=== PATIENT | female | born 1985 | race Hispanic/Latino ===

== ENCOUNTER 2017-11-05 18:42 | Emergency (ER) | payer SELFPAY ==
--- NOTE | 2017-11-05 20:17 | RAD REPORT ---
EXAM DESCRIPTION: CT - Head Brain Wo Cont - 11/05/2017 8:04 pm CLINICAL HISTORY: SYNCOPE Drowsiness COMPARISON: No comparisons TECHNIQUE: All CT scans are performed using dose optimization technique as appropriate and may inclu de automated exposure control or mA/KV adjustment according to patient size. FINDINGS: No intracranial hemorrhage, hydrocephalus or extra-axial fluid collection.No areas of brai n edema or evidence of midline shift. The paranasal sinuses and mastoids are clear. The calvarium is intact. IMPRESSION: No acute intracranial abnormality.
--- NOTE | 2017-11-05 20:18 | RAD REPORT ---
EXAM DESCRIPTION: RAD - Chest Single View - 11/05/2017 8:12 pm CLINICAL HISTORY: presyncope Chest pain. COMPARISON: Chest Single View dated 09/16/2016 FINDINGS: Portable technique limits examination quality. The lungs are grossly clear. The heart is normal in size. No displaced fractures. IMPRESSION: No acute intrathoracic process suspected.
[2017-11-05 20:48] LABS: Absolute Lymphocytes (CBC) 1.3 K/uL (0.7-4.9); Absolute Monocytes 0.4 K/uL (0.1-1.3); Absolute Neutrophil 6.5 K/uL (1.8-8.0); Basophils % 0.6 % (0-1.3); Eosinophils % 1.1 % (0-4.4); Hematocrit 37.6 % (36.0-45.0); Lymphocytes % 15.7 % (15.3-44.8); MCH 30.2 pg (27.0-35.0); MCV 88.9 fL (80-100); MPV 10.2 fL (7.6-11.3); Monocytes % 4.8 % (3.3-12.3); RBC Red Blood Cell Count 4.23 M/uL (3.86-4.86)
[2017-11-05 20:52] LABS: ALT/SGPT 15 U/L (12-78); AST/SGOT 14 U/L (15-37); Albumin 4.1 g/dL (3.4-5.0); Alkaline Phosphatase 69 U/L (45-117); BUN Blood Urea Nitrogen 17 mg/dL (7-18); Bicarbonate 27 mmol/L (21-32); Bilirubin Direct 0.1 mg/dL (0-0.2); Bilirubin Total 0.3 mg/dL (0.2-1.0); Glucose Level 91 mg/dL (74-106); Magnesium 2.5 mg/dL (1.8-2.4); NT PRO-BNP 25 pg/mL (<125); Potassium 3.8 mmol/L (3.5-5.1); Protein, Total 8.1 g/dL (6.4-8.2); Sodium Level 139 mmol/L (136-145); Troponin (Emerg Dept Use Only) < 0.02 ng/mL (0.0-0.045)
[2017-11-05 21:11] LABS: Protime INR 0.99
--- NOTE | 2017-11-05 22:37 | EDPHYS ---
Physician Documentation [facility] Name: Maribell Karimi Age: 32 yrs Sex: Female : 1985 Arrival Date: 11/05/2017 Time: 18:46 Bed 16 Private MD: ED Physician Wyatt Aleman HPI: 11/05 19:50 This 32 yrs old Female presents to ER via Ambulatory with complaints of jmm Headache, Nausea, Blurred Vision. 19:50 The patient complains of pain to the left occipital area, left base of the skull, right jmm occipital area and right base of the skull. Onset: The symptoms/episode began/occurred gradually, 4 hour(s) ago. Associated signs and symptoms: Pertinent positives: blurred vision. Headache History: The patient has had previous headaches and this one is similar to previous episodes. This is a 32 year old female with no chronic medical conditions that presents to the ED with headache, blurred vision and presyncopal symptoms. Patient states while at work she developed a headache and then developed blurred vision while seeing spots in both eyes. patient states having similar headaches in the past but denies feeling weak with previous headaches. . 19:50 Associated signs and symptoms: Pertinent positives: SOB. 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 - Social history:: Smoking status: Patient/guardian denies using tobacco. - Ebola Screening: : No symptoms or risks identified at this time. ROS: 19:50 Constitutional: Negative for fever, chills, and weight loss, Cardiovascular: Negative jm for chest pain, palpitations, and edema. 19:50 Respiratory: Positive for shortness of breath. 19:50 Neuro: Positive for headache, near syncope, visual changes. 19:50 All other systems are negative. Exam: 19:50 Head/Face: atraumatic. Chest/axilla: Normal chest wall appearance and motion. jmm Cardiovascular: Regular rate and rhythm. No edema appreciated Respiratory: Normal respirations, no respiratory distress appreciated Abdomen/GI: Non distended, soft 19:50 Constitutional: The patient appears in no acute distress, alert, awake. 19:50 Abdomen/GI: Palpation: abdomen is soft and non-tender, in all quadrants. 19:50 Back: ROM is normal. 19:50 Musculoskeletal/extremity: ROM: intact in all extremities. 19:50 Skin: Appearance: Color: normal in color. 19:50 Neuro: Orientation: is normal, Mentation: is normal, Memory: is normal, Cerebellar function: normal finger to nose testing, Gait: is steady. 19:50 Psych: Behavior/mood is pleasant, cooperative. Vital Signs: 19:00 BP 113 / 70; Pulse 66; Resp 16 S; Temp 98.0(TE); Pulse Ox 98% on R/A; Weight 52.16 kg aa5 (R); Height 5 ft. 1 in. (154.94 cm) (R); Pain 10/10; 20:20 BP 100 / 70; Pulse 60; Resp 18; Pulse Ox 99% ; ea 21:16 BP 90 / 53; Pulse 60; Resp 18; Pulse Ox 100% on R/A; ea 21:43 BP 100 / 53; Pulse 62; Resp 18; Pulse Ox 98% ; ea 22:35 BP 101 / 60; Pulse 60; Resp 18; Temp 97.8; Pulse Ox 100% ; ea 19:00 Body Mass Index 21.73 (52.16 kg, 154.94 cm) aa5 MDM: 19:50 Patient medically screened. [facility] 21:31 Data reviewed: vital signs, nurses notes. [facility] 22:34 Data reviewed: lab test result(s), EKG, radiologic studies, CT scan, plain films. [facility] Counseling: I had a detailed discussion with the patient and/or guardian regarding: the historical points, exam findings, and any diagnostic results supporting the discharge/admit diagnosis, lab results, radiology results, the need for outpatient follow up. ED course: Symptoms appear most likely due to hypotension. Patient states feeling much better after IVF. I discussed the need to follow up with cardiology for further evaluation. The patient is otherwise given strict return precautions. Patient understood and agree with the plan of care. . 11/05 19:51 Order name: Basic Metabolic Panel; Complete Time: 21:23 [facility] 11/05 19:51 Order name: CBC with Diff; Complete Time: 21:23 [facility] 11/05 19:51 Order name: LFT's; Complete Time: 21:23 [facility] 11/05 19:51 Order name: Magnesium; Complete Time: 21:23 [facility] 11/05 19:51 Order name: NT PRO-BNP; Complete Time: 21:23 [facility] 11/05 19:51 Order name: PT-INR; Complete Time: 21:23 [facility] 11/05 19:51 Order name: Troponin (emerg Dept Use Only); Complete Time: 21:23 [facility] 11/05 19:51 Order name: XRAY Chest (1 view); Complete Time: 20:18 [facility] 11/05 19:51 Order name: EKG; Complete Time: 19:52 [facility] 11/05 19:51 Order name: Cardiac monitoring; Complete Time: 20:47 [facility] 11/05 19:51 Order name: EKG - Nurse/Tech; Complete Time: 20:47 [facility] 11/05 19:51 Order name: CT Head Brain wo Cont; Complete Time: 20:18 [facility] 11/05 20:45 Order name: D-Dimer; Complete Time: 21:23 [facility] 11/05 19:51 Order name: IV Saline Lock; Complete Time: 20:47 [facility] 11/05 19:51 Order name: Labs collected and sent; Complete Time: 20:47 [facility] 11/05 19:51 Order name: O2 Per Protocol; Complete Time: 20:47 [facility] 11/05 19:51 Order name: O2 Sat Monitoring; Complete Time: 20:47 jm Administered Medications: No medications were administered Point of Care Testing: Blood Glucose: 19:00 Blood Glucose: 129 mg/dL; aa5 Ranges: Critical Glucose Levels:Adult <50 mg/dl or >400 mg/dl <40 mg/dl or >180 mg/dl Disposition: 11/06 06:44 Co-signature as Attending Physician, Wyatt Aleman MD I agree with the assessment and bruna plan of care. Disposition: 11/05/17 22:36 Discharged to Home. Impression: near syncope, Headache. - Condition is Stable. - Discharge Instructions: General Headache Without Cause, Near-Syncope. - Medication Reconciliation Form, Thank You Letter, Antibiotic Education, Prescription Opioid Use, Work release form form. - Follow up: Vimal Birmingham MD; When: 2 - 3 days; Reason: Recheck today's complaints, Continuance of care, Re-evaluation by your physician. Signatures: Dispatcher [employer] [facility] Wyatt Aleman MD MD cha Mickail, Joel, PA PA jmm Calderon, Audri, RN RN aa5 Hortencia Roman RN RN ea Corrections: (The following items were deleted from the chart) 11/05 20:45 20:41 D-DIMER+COAG.LAB.BRZ ordered. [facility] 22:49 22:36 11/05/2017 22:36 Discharged to Home. Impression: near syncope; Headache. ea Condition is Stable. Forms are Medication Reconciliation Form, Thank You Letter, Antibiotic Education, Prescription Opioid Use. Follow up: Vimal Birmingham; When: 2 - 3 days; Reason: Recheck today's complaints, Continuance of care, Re-evaluation by your physician. [facility]
--- NOTE | 2017-11-05 22:37 | ER ---
Nurse's Notes [facility] Name: Maribell Karimi Age: 32 yrs Sex: Female : 1985 Arrival Date: 11/05/2017 Time: 18:46 Bed 16 Private MD: Diagnosis: near syncope;Headache Presentation: 11/05 18:58 Presenting complaint: Patient states: "I was at work and all of a sudden I started aa5 seeing black spots all over, dizzy, short of breath, nausea, and like I was going to pass out but I sat down". Pt currently reports blurry vision, headache to back of head, and nausea. Transition of care: patient was not received from another setting of care. Onset of symptoms was November 05, 2017 at 16:30. Risk Assessment: Do you want to hurt yourself or someone else? Patient reports no desire to harm self or others. Initial Sepsis Screen: Does the patient meet any 2 criteria? No. Patient's initial sepsis screen is negative. Does the patient have a suspected source of infection? No. Patient's initial sepsis screen is negative. Care prior to arrival: None. 18:58 Method Of Arrival: Ambulatory aa5 18:58 Acuity: CHUCKIE 3 aa5 Triage Assessment: 20:00 Headache History: The patient has had previous headaches and this one is more severe ea than previous episodes. General: Appears in no apparent distress. Pain: Also complains of no other associated symptoms. Pain: Complains of pain in occipital area and right base of the skull and left base of the skull. Pain: Also complains of blurry vision. 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 - Social history:: Smoking status: Patient/guardian denies using tobacco. - Ebola Screening: : No symptoms or risks identified at this time. Screenin:00 Abuse screen: Denies threats or abuse. Nutritional screening: No deficits noted. ea Tuberculosis screening: No symptoms or risk factors identified. Fall Risk None identified. Assessment: 20:00 General: Appears uncomfortable, Behavior is calm, cooperative, appropriate for age. ea Pain: Complains of pain in occipital area, left occipital area, left base of the skull, right occipital area and right base of the skull Pain currently is 8 out of 10 on a pain scale. Quality of pain is described as aching, Pain began 1 hour ago. Is continuous. Neuro: Level of Consciousness is awake, alert, obeys commands, Oriented to person, place, time, situation, Solar Tech are equal bilaterally Gait is steady, Speech is normal, Facial symmetry appears normal. Cardiovascular: Heart tones S1 S2 present Patient's skin is warm and dry. Respiratory: Airway is patent Respiratory effort is even, unlabored, Respiratory pattern is regular, symmetrical, Breath sounds are clear bilaterally. GI: Bowel sounds present X 4 quads. Abd is soft and non tender X 4 quads. EENT: Parent/caregiver reports the patient having blurred vision that is accompanied by the headache. Derm: Skin is pink, warm \\T\\ dry. 21:16 Reassessment: Patient and/or family updated on plan of care and expected duration. Pain ea level reassessed. Patient is alert, oriented x 3, equal unlabored respirations, skin warm/dry/pink. 21:45 Reassessment: Patient and/or family updated on plan of care and expected duration. Pain ea level reassessed. Patient is alert, oriented x 3, equal unlabored respirations, skin warm/dry/pink. Pt ambulated tolerated well, denies dizziness, weakness and shortness of breath. 22:00 Reassessment: Patient and/or family updated on plan of care and expected duration. Pain ea level reassessed. Patient is alert, oriented x 3, equal unlabored respirations, skin warm/dry/pink. 22:46 Reassessment: Patient and/or family updated on plan of care and expected duration. Pain ea level reassessed. Patient is alert, oriented x 3, equal unlabored respirations, skin warm/dry/pink. Discharge instructions given to patient, verbalized the understanding of instruciton. Patient states feeling better. Patient states symptoms have improved. Vital Signs: 19:00 BP 113 / 70; Pulse 66; Resp 16 S; Temp 98.0(TE); Pulse Ox 98% on R/A; Weight 52.16 kg aa5 (R); Height 5 ft. 1 in. (154.94 cm) (R); Pain 10/10; 20:20 BP 100 / 70; Pulse 60; Resp 18; Pulse Ox 99% ; ea 21:16 BP 90 / 53; Pulse 60; Resp 18; Pulse Ox 100% on R/A; ea 21:43 BP 100 / 53; Pulse 62; Resp 18; Pulse Ox 98% ; ea 22:35 BP 101 / 60; Pulse 60; Resp 18; Temp 97.8; Pulse Ox 100% ; ea 19:00 Body Mass Index 21.73 (52.16 kg, 154.94 cm) aa5 ED Course: 18:46 Patient arrived in ED. mr 18:59 Triage completed. aa5 18:59 Arm band placed on. aa5 19:15 Valente Mcqueen PA is PHCP. [facility] 19:15 Wyatt Aleman MD is Attending Physician. [facility] 20:00 Hortencia Roman, WENDY is Primary Nurse. ea 20:00 Patient has correct armband on for positive identification. Bed in low position. Call ea light in reach. Side rails up X 1. 20:[address] via wheelchair. md 20:02 CT completed. Patient tolerated procedure well. Patient moved back from CT. md 20:04 CT Head Brain wo Cont In Process Unspecified. EDMS 20:12 XRAY Chest (1 view) In Process Unspecified. EDMS 20:15 Inserted saline lock: 20 gauge in left antecubital area, using aseptic technique. Blood ea collected. 22:36 Vimal Birmingham MD is Referral Physician. [facility] 22:46 No provider procedures requiring assistance completed. IV discontinued, intact, ea bleeding controlled, No redness/swelling at site. Pressure dressing applied. Administered Medications: No medications were administered Point of Care Testing: Blood Glucose: 19:00 Blood Glucose: 129 mg/dL; aa5 Ranges: Outcome: 22:36 Discharge ordered by . [facility] 22:47 Discharged to home ambulatory. ea 22:47 Condition: improved 22:47 Discharge instructions given to patient, Instructed on discharge instructions, follow up and referral plans. Demonstrated understanding of instructions, follow-up care. 22:49 Patient left the ED. ea Signatures: Dispatcher [employer] EDNV Valente Mcqueen PA PA [facility] Andreina Galo Becky Nolen, RN RN aa5 Bong, Joshua nj Roman, Hortencia, RN RN ea
[2017-11-06 00:29] VITALS: BP 101/60; TEMP 97.8; O2SAT 100
--- NOTE | 2017-11-08 06:53 | EKG ---
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
== END 2017-11-05 22:49 | disposition home or self-care (01) ==
LOC: ER 18:42
DX: R55 Syncope and collapse (principal)
CPT/HCPCS: 36415; 70450; 71045; 80048; 80076; 82962; 83735; 83880; 84484; 85025; 85379; 85610; 93005; 99284

== ENCOUNTER 2019-03-10 18:44 | Emergency (ER) | payer SELFPAY ==
[2019-03-10] MEDS ORDERED: MORPHINE 4 MG/ML SYR ONE (19:09)
[2019-03-10] MEDS ORDERED: ONDANSETRON 4 MG/2 ML VIAL ONE (19:09)
[2019-03-10 19:14] LABS: Basophils % 0.5 % (0-1.3); Hematocrit 37.9 % (36.0-45.0); Lymphocytes % 8.6 % (15.3-44.8); MPV 10.2 fL (7.6-11.3); RBC Red Blood Cell Count 4.23 M/uL (3.86-4.86)
[2019-03-10 19:25] LABS: Albumin 4.1 g/dL (3.4-5.0); Bilirubin Direct 0.2 mg/dL (0-0.2); Bilirubin Total 0.7 mg/dL (0.2-1.0); Potassium 3.4 mmol/L (3.5-5.1); Protein, Total 7.8 g/dL (6.4-8.2)
[2019-03-10 19:36] LABS: Urine Blood 3+ (NEG); Urine Glucose NEGATIVE (NEG); Urine Protein 1+ (NEG); Urine Specific Gravity >1.030 (1.005-1.030)
[2019-03-10 19:52] LABS: Blood Morphology Comment NOT SEEN (NOT SEEN); Platelet Estimate ADEQ; Urine White Blood Cell Casts OK
--- NOTE | 2019-03-10 20:16 | RAD REPORT ---
EXAM DESCRIPTION: CT - Abdomen Pelvis W Contrast - 03/10/2019 7:58 pm CLINICAL HISTORY: Abdominal pain COMPARISON: 2017 TECHNIQUE: Computed axial tomography of the abdomen pelvis was obtained. 100 cc Isovue-300 was admin istered intravenously. Oral contrast was not requested which limits evaluation of bowel. All CT scans are performed using dose optimization technique as appropriate and may include automated exposure control or mA/KV adjustment according to patient size. FINDINGS: The liver, spleen, pancreas, adrenal and kidneys appear unremarkable. There is no evidence of diverticulitis. Normal appendix Mild thickening of the wall of the transverse colon IMPRESSION: Mild thickening of the wall of the transverse colon may indicate a mild colitis
[2019-03-10] MEDS ORDERED: METRONIDAZOLE 500mg IVPB 500 MG/100 ML BAG IV ONE (20:45)
[2019-03-10] MEDS ORDERED: CIPROFLOXACIN HCL 500 MG TAB ONE (20:45)
--- NOTE | 2019-03-10 20:59 | EDPHYS ---
Physician Documentation [facility] Name: Maribell Karimi Age: 33 yrs Sex: Female : 1985 Arrival Date: 03/10/2019 Time: 18:45 Bed 19 Private MD: ED Physician Trevin Araujo HPI: 03/10 18:51 This 33 yrs old Female presents to ER via EMS with complaints of Abdominal pm1 Pain. 18:51 The patient presents with abdominal pain right lower quadrant. Onset: The pm1 symptoms/episode began/occurred 30 minutes prior to arrival. The symptoms do not radiate. 18:51 Associated signs and symptoms: Pertinent positives: nausea, vomiting, Vaginal bleeding pm1 on her cycle, Pertinent negatives: chest pain, shortness of breath. The symptoms are described as sharp. Modifying factors: The symptoms are alleviated by nothing, the symptoms are aggravated by nothing. Severity of pain: in the emergency department the pain is actually worse. The patient has not experienced similar symptoms in the past. It is unknown whether or not the patient has recently seen a physician. 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 - Coronavirus screen:: The patient has NOT traveled to [place], [place], or [place] in the past 14 days. - Social history:: Smoking status: . - Ebola Screening: : Patient denies travel to an Ebola-affected area in the 21 days before illness onset. ROS: 18:51 Constitutional: Negative for fever, chills, and weight loss, Neck: Negative for injury, pm1 pain, and swelling, Cardiovascular: Negative for chest pain, palpitations, and edema, Respiratory: Negative for shortness of breath, cough, wheezing, and pleuritic chest pain. 18:51 Back: Negative for injury and pain. 18:51 MS/Extremity: Negative for injury and deformity, Skin: Negative for injury, rash, and discoloration, Neuro: Negative for headache, weakness, numbness, tingling, and seizure. 18:51 Abdomen/GI: Positive for abdominal pain, nausea and vomiting, of the right lower quadrant, Negative for diarrhea, constipation. 18:51 : Positive for vaginal bleeding, Negative for urinary symptoms. Exam: 18:51 Constitutional: This is a well developed, well nourished patient who is awake, alert, pm1 and in no acute distress. Head/Face: Normocephalic, atraumatic. Neck: Trachea midline, no thyromegaly or masses palpated, and no cervical lymphadenopathy. Supple, full range of motion without nuchal rigidity, or vertebral point tenderness. No Meningismus. Chest/axilla: Normal chest wall appearance and motion. Nontender with no deformity. No lesions are appreciated. Cardiovascular: Regular rate and rhythm with a normal S1 and S2. No gallops, murmurs, or rubs. Normal PMI, no JVD. No pulse deficits. Respiratory: Lungs have equal breath sounds bilaterally, clear to auscultation and percussion. No rales, rhonchi or wheezes noted. No increased work of breathing, no retractions or nasal flaring. 18:51 Back: No spinal tenderness. No costovertebral tenderness. Full range of motion. Skin: Warm, dry with normal turgor. Normal color with no rashes, no lesions, and no evidence of cellulitis. MS/ Extremity: Pulses equal, no cyanosis. Neurovascular intact. Full, normal range of motion. 18:51 Abdomen/GI: Inspection: abdomen appears normal, Bowel sounds: normal, Palpation: soft, in all quadrants, mild abdominal tenderness, in the right lower quadrant and left lower quadrant, mass, is not appreciated, rebound tenderness, is not appreciated. 18:51 Neuro: Orientation: is normal, Motor: is normal, moves all fours. Vital Signs: 18:49 BP 106 / 56; Pulse 65; Resp 17; Temp 98.1(O); Pulse Ox 95% on R/A; Weight 54.43 kg (R); tw2 Height 5 ft. 1 in. (154.94 cm); Pain 9/10; 19:30 BP 116 / 69; Pulse 62; Resp 16; Temp 98; Pulse Ox 99% ; Pain 10/10; rr5 20:30 BP 119 / 78; Pulse 66; Resp 19; Pulse Ox 98% on R/A; Pain 0/10; rr5 21:27 BP 110 / 75; Pulse 64; Resp 16; Temp 98.2; Pulse Ox 99% on R/A; rr5 18:49 Body Mass Index 22.67 (54.43 kg, 154.94 cm) tw2 18:49 "when the pain comes its a 9, but its ok right now" tw2 MDM: 18:51 Patient medically screened. pm1 20:58 Data reviewed: vital signs. Data interpreted: Pulse oximetry: on room air is 99 %. pm1 Interpretation: normal. 20:58 Counseling: I had a detailed discussion with the patient and/or guardian regarding: the pm1 historical points, exam findings, and any diagnostic results supporting the discharge/admit diagnosis, lab results, radiology results, the need for outpatient follow up, to return to the emergency department if symptoms worsen or persist or if there are any questions or concerns that arise at home. 03/10 18:49 Order name: Basic Metabolic Panel; Complete Time: 19:30 pm1 03/10 18:49 Order name: CBC with Diff; Complete Time: 20:26 pm 03/10 18:49 Order name: Creatinine for Radiology; Complete Time: 19:30 pm1 03/10 18:49 Order name: Hepatic Function; Complete Time: 19:30 pm1 03/10 18:49 Order name: Lipase; Complete Time: 19:30 pm1 03/10 19:34 Order name: Urine Dipstick--Ancillary (enter results) [facility] 03/10 18:49 Order name: IV Saline Lock; Complete Time: 19:00 pm03/10 19:34 Order name: Urine --Ancillary (enter results) [facility] 03/10 19:37 Order name: CT Abd/Pelvis - IV Contrast Only; Complete Time: 20:26 pm 03/10 19:52 Order name: CBC Smear Scan; Complete Time: 20:26 EDMN 03/10 18:49 Order name: Labs collected and sent; Complete Time: 19:05 pm1 03/10 18:49 Order name: Urine Dipstick-Ancillary (obtain specimen); Complete Time: 19:27 pm1 03/10 18:49 Order name: Urine Test (obtain specimen); Complete Time: 19:27 pm1 Administered Medications: 19:12 Drug: Zofran 4 mg Route: IVP; Site: right antecubital; rr5 20:15 Follow up: Response: No adverse reaction; Marked relief of symptoms rr5 19:14 Drug: morphine 4 mg {Note: rass 0.} Route: IVP; Site: right antecubital; rr5 20:15 Follow up: Response: No adverse reaction; Marked relief of symptoms; RASS: Alert and rr5 Calm (0) 20:49 Drug: Cipro 500 mg Route: PO; rr5 21:30 Follow up: Response: No adverse reaction rr5 20:49 Drug: Flagyl 500 mg Volume: 100 ml; Route: IVPB; Rate: 200 ml/hr; Infused Over: 30 rr5 mins; Site: right antecubital; 21:15 Follow up: Response: No adverse reaction; IV Status: Completed infusion; IV Intake: rr5 100ml Disposition: 03/10/19 20:59 Discharged to Home. Impression: Colitis. - Condition is Stable. - Discharge Instructions: Colitis. - Prescriptions for Flagyl 500 mg Oral Tablet - take 1 tablet by ORAL route every 8 hours for 10 days; 30 tablet. Cipro 500 mg Oral Tablet - take 1 tablet by ORAL route every 12 hours for 10 days; 20 tablet. Bentyl 20 mg Oral Tablet - take 1 tablet by ORAL route every 6 hours As needed; 20 tablet. Tylenol- Codeine #3 300-30 mg Oral Tablet - take 2 tablets by ORAL route every 6 hours As needed; 20 tablet. Zofran 4 mg Oral Tablet - take 1 tablet by ORAL route every 8 hours As needed; 20 tablet. - Medication Reconciliation Form, Thank You Letter, Antibiotic Education, Prescription Opioid Use form. - Follow up: Emergency Department; When: As needed; Reason: Worsening of condition. Follow up: Private Physician; When: 2 - 3 days; Reason: Recheck today's complaints, Continuance of care, Re-evaluation by your physician. - Problem is new. - Symptoms have improved. Addendum: 03/14/2019 07:49 Co-signature as Attending Physician, Trevin Araujo MD. r n Signatures: Dispatcher [employer] EDTrevin Feliciano MD MD rn Marinas, Patrick, PIPELINES SUPERINTENDENT PIPELINES SUPERINTENDENT pm1 Bhavna Ortiz RN RN tw2 Charles Montano RN RN rr5 Corrections: (The following items were deleted from the chart) 03/10 21:30 20:59 03/10/2019 20:59 Discharged to Home. Impression: Colitis. Condition is Stable. rr5 Forms are Medication Reconciliation Form, Thank You Letter, Antibiotic Education, Prescription Opioid Use. Follow up: Emergency Department; When: As needed; Reason: Worsening of condition. Follow up: Private Physician; When: 2 - 3 days; Reason: Recheck today's complaints, Continuance of care, Re-evaluation by your physician. Problem is new. Symptoms have improved. pm1
--- NOTE | 2019-03-10 20:59 | ER ---
Nurse's Notes [facility] Name: Maribell Karimi Age: 33 yrs Sex: Female : 1985 Arrival Date: 03/10/2019 Time: 18:45 Bed 19 Private MD: Diagnosis: Colitis Presentation: 03/10 18:46 Presenting complaint: EMS states: pt started having severe abdominal pain about 30 tw2 minutes ago, pt reports vomiting, pt is on period and states she is having a heavy flow, has had a tuba ligation, vs stable. Transition of care: patient was not received from another setting of care. Onset of symptoms was March 10, 2019. Risk Assessment: Do you want to hurt yourself or someone else? Patient reports no desire to harm self or others. Initial Sepsis Screen: Does the patient meet any 2 criteria? No. Patient's initial sepsis screen is negative. Does the patient have a suspected source of infection? No. Patient's initial sepsis screen is negative. Care prior to arrival: None. 18:46 Method Of Arrival: EMS: [facility] tw2 18:46 Acuity: CHUCKIE 3 tw2 Triage Assessment: 18:48 General: Appears in no apparent distress. Behavior is calm, cooperative, appropriate tw2 for age. Pain: Complains of pain in abdomen. GI: Reports lower abdominal pain, upper abdominal pain, nausea, vomiting. 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 - Coronavirus screen:: The patient has NOT traveled to [place], [place], or [place] in the past 14 days. - Social history:: Smoking status: . - Ebola Screening: : Patient denies travel to an Ebola-affected area in the 21 days before illness onset. Screenin:51 Abuse screen: Denies threats or abuse. Nutritional screening: No deficits noted. tw2 Tuberculosis screening: No symptoms or risk factors identified. Fall Risk None identified. Assessment: 19:00 General: Appears in no apparent distress. uncomfortable, ill, Behavior is calm, rr5 cooperative, appropriate for age. 19:00 Pain: Complains of pain in abdomen Pain does not radiate. Pain currently is 10 out of rr5 10 on a pain scale. Quality of pain is described as aching, Pain began 1 hour ago. Is intermittent. Neuro: Level of Consciousness is awake, alert, obeys commands, Oriented to person, place, time, situation, Appropriate for age. Cardiovascular: Capillary refill < 3 seconds Patient's skin is warm and dry. Respiratory: Airway is patent Respiratory effort is even, unlabored, Respiratory pattern is regular, symmetrical. GI: Abdomen is flat, Bowel sounds present X 4 quads. Guarding noted Reports lower abdominal pain, upper abdominal pain, nausea, vomiting. : Reports vaginal bleeding that is heavy flow. EENT: No signs and/or symptoms were reported regarding the EENT system. Derm: No signs and/or symptoms reported regarding the dermatologic system. Musculoskeletal: Circulation, motion, and sensation intact. Capillary refill < 3 seconds. 20:00 Reassessment: Patient appears in no apparent distress at this time. Patient is alert, rr5 oriented x 3, equal unlabored respirations, skin warm/dry/pink. Patient denies pain at this time. Patient states feeling better. Patient states symptoms have improved. 21:29 Reassessment: Patient appears in no apparent distress at this time. Patient is alert, rr5 oriented x 3, equal unlabored respirations, skin warm/dry/pink. discharge instruction given and explained without complaints made. Patient states feeling better. Patient states symptoms have improved. Vital Signs: 18:49 BP 106 / 56; Pulse 65; Resp 17; Temp 98.1(O); Pulse Ox 95% on R/A; Weight 54.43 kg (R); tw2 Height 5 ft. 1 in. (154.94 cm); Pain 9/10; 19:30 BP 116 / 69; Pulse 62; Resp 16; Temp 98; Pulse Ox 99% ; Pain 10/10; rr5 20:30 BP 119 / 78; Pulse 66; Resp 19; Pulse Ox 98% on R/A; Pain 0/10; rr5 21:27 BP 110 / 75; Pulse 64; Resp 16; Temp 98.2; Pulse Ox 99% on R/A; rr5 18:49 Body Mass Index 22.67 (54.43 kg, 154.94 cm) tw2 18:49 "when the pain comes its a 9, but its ok right now" tw2 ED Course: 18:45 Patient arrived in ED. tw2 18:46 Bed in low position. Call light in reach. Side rails up X2. Pulse ox on. NIBP on. tw2 18:48 Triage completed. tw2 18:49 Fam Munoz, BARTOLO is PHCP. pm1 18:49 Trevin Araujo MD is Attending Physician. pm1 18:51 Arm band placed on. tw2 19:00 Inserted saline lock: 20 gauge in right antecubital area, using aseptic technique. rr5 ,using aseptic technique. received from AM shift Blood collected. 19:02 Charles Montano, RN is Primary Nurse. rr5 19:59 CT Abd/Pelvis - IV Contrast Only In Process Unspecified. EDMS 21:28 No provider procedures requiring assistance completed. IV discontinued, intact, rr5 bleeding controlled, No redness/swelling at site. Pressure dressing applied. Administered Medications: 19:12 Drug: Zofran 4 mg Route: IVP; Site: right antecubital; rr5 20:15 Follow up: Response: No adverse reaction; Marked relief of symptoms rr5 19:14 Drug: morphine 4 mg {Note: rass 0.} Route: IVP; Site: right antecubital; rr5 20:15 Follow up: Response: No adverse reaction; Marked relief of symptoms; RASS: Alert and rr5 Calm (0) 20:49 Drug: Cipro 500 mg Route: PO; rr5 21:30 Follow up: Response: No adverse reaction rr5 20:49 Drug: Flagyl 500 mg Volume: 100 ml; Route: IVPB; Rate: 200 ml/hr; Infused Over: 30 rr5 mins; Site: right antecubital; 21:15 Follow up: Response: No adverse reaction; IV Status: Completed infusion; IV Intake: rr5 100ml Intake: 21:15 IV: 100ml; Total: 100ml. rr5 Outcome: 20:59 Discharge ordered by . pm1 21:28 Discharged to home ambulatory. rr5 21:28 Condition: stable 21:28 Discharge instructions given to patient, Instructed on discharge instructions, follow up and referral plans. medication usage, Demonstrated understanding of instructions, follow-up care, medications, Prescriptions given X x5 21:30 Patient left the ED. rr5 Signatures: Dispatcher [employer] EDMS Fam Munoz, BARTOLO MAGAZINE JOURNALIST pm1 Bhavna Ortiz RN RN tw2 Charles Montano RN RN rr5 Corrections: (The following items were deleted from the chart) 19:06 18:49 Pulse 65bpm; Resp 17bpm; Pulse Ox 95% RA; 54.43 kg Reported; Height 5 ft. 1 in.; tw2 BMI: 22.6; Pain 9; "when the pain comes its a 9, but its ok right now"; tw2
[2019-03-10 21:40] VITALS: BP 110/75; TEMP 98.2; O2SAT 99
== END 2019-03-10 21:30 | disposition home or self-care (01) ==
LOC: ER 18:44
DX: K52.9 Noninfective gastroenteritis and colitis, unspecified (principal); I10 Essential (primary) hypertension
CPT/HCPCS: 36415; 74177; 80048; 80076; 81003; 81025; 83690; 85025; 96365; 96375; 99284; J2405; Q9967

== ENCOUNTER 2020-01-10 11:15 | Emergency (ER) | payer SELFPAY ==
[2020-01-10] MEDS ORDERED: NA CHLORIDE 0.9% 500 ML ONE (12:14)
[2020-01-10] MEDS ORDERED: DIPHENHYDRAMINE 50 MG/ML VIAL ONE (12:14)
[2020-01-10] MEDS ORDERED: METOCLOPRAMIDE 10 MG/2mL INJ ONE (12:14)
--- NOTE | 2020-01-10 12:39 | RAD REPORT ---
EXAM DESCRIPTION: CT - Head Brain Wo Cont - 01/10/2020 12:31 pm CLINICAL HISTORY: HEADACHE, vomiting COMPARISON: Head Brain Wo Cont dated 11/05/2017 TECHNIQUE: Axial 5 mm thick images of the head were obtained without IV contrast. All CT scans are performed using dose optimization technique as appropriate and may include automated exposure control or mA/KV adjustment according to patient size. FINDINGS: No intracranial hemorrhage, mass, edema or shift of mid-line structures. No acute infarcti on changes seen. No abnormal extra-axial fluid collections. Ventricles are normal. Mastoid air cells and visualized portions of the paranasal sinuses are clear. No acute bony findings. No change from comparison. IMPRESSION: Negative non-contrast CT head examination.
[2020-01-10] MEDS ORDERED: dexAMETHasone 10 MG/ML VIAL ONE (14:03)
--- NOTE | 2020-01-10 15:22 | EDPHYS ---
Physician Documentation [facility] Name: Maribell Karimi Age: 34 yrs Sex: Female : 1985 Arrival Date: 01/10/2020 Time: 11:28 Bed 13 Private MD: ED Physician Rony Navas HPI: 01/09 11:47 This 34 yrs old Female presents to ER via EMS with complaints of Headache. jmm 11:47 Onset: The symptoms/episode began/occurred gradually. Associated signs and symptoms: jmm Pertinent positives: Photophobia vomiting, Pertinent negatives: fever, neck stiffness. This is a 34 year old female with no chronic medical conditions that presents to the ED with complaints of acute onset headache beginning today around 0900 am. Headache is worse than previous. 1 episode of vomiting. Patient states having a history of migraine headaches. . 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 - Social history:: Smoking status: Patient denies any tobacco usage or history of. ROS: 11:47 Constitutional: Negative for fever, chills, and weight loss, Cardiovascular: Negative jmm for chest pain, palpitations, and edema, Respiratory: Negative for shortness of breath, cough, wheezing, and pleuritic chest pain. 11:47 Neuro: Positive for headache. 11:47 All other systems are negative. Exam: 11:47 Constitutional: This is a well developed, well nourished patient who is awake, alert, jmm and in no acute distress. Head/Face: atraumatic. Eyes: EOMI, no conjunctival erythema appreciated ENT: Moist Mucus Membranes Neck: Trachea midline, Supple Chest/axilla: Normal chest wall appearance and motion. Cardiovascular: Regular rate and rhythm. No edema appreciated Respiratory: Normal respirations, no respiratory distress appreciated Abdomen/GI: Non distended, soft Back: Normal ROM Skin: General appearance color normal MS/ Extremity: Moves all extremities, no obvious deformities appreciated, no edema noted to the lower extremities Neuro: Awake and alert, normal gait Psych: Behavior is normal, Mood is normal, Patient is cooperative and pleasant Vital Signs: 11:29 BP 105 / 60; Pulse 63; Resp 19 S; Temp 97.7(O); Pulse Ox 100% on R/A; Weight 58.97 kg ca1 (R); Height 5 ft. 1 in. (154.94 cm) (R); Pain 10/10; 13:05 BP 98 / 58; Pulse 79; Resp 17 S; Pulse Ox 100% ; jd3 15:51 BP 100 / 60; Pulse 80; Resp 16; Pulse Ox 100% on R/A; zb 11:29 Body Mass Index 24.56 (58.97 kg, 154.94 cm) ca1 MDM: 11:47 Patient medically screened. [facility] 15:17 Data reviewed: vital signs, nurses notes. Counseling: I had a detailed discussion with [facility] the patient and/or guardian regarding: the historical points, exam findings, and any diagnostic results supporting the discharge/admit diagnosis, radiology results, the need for outpatient follow up, to return to the emergency department if symptoms worsen or persist or if there are any questions or concerns that arise at home. ED course: Pain relieved in the ED. CT negative. I do not suspect SAH or meningitis. Patient is advised to follow up with neuro for further evaluation. Patient is otherwise given strict return precautions. Patient understood and agrees with the plan of care. . 01/09 11:48 Order name: CT Head Brain wo Cont; Complete Time: 12:50 [facility] 01/09 11:48 Order name: Urine Test (obtain specimen); Complete Time: 13:30 [facility] 01/09 11:48 Order name: Saline Lock; Complete Time: 12:22 [facility] Administered Medications: 12:17 Drug: Reglan 20 mg Route: IVP; Site: right antecubital; zb 13:10 Follow up: Response: No adverse reaction zb 12:18 Drug: diphenhydrAMINE 25 mg Route: IVP; Site: right antecubital; zb 13:00 Follow up: Response: No adverse reaction zb 12:18 Drug: NS 0.9% 500 ml Route: IV; Rate: bolus; Site: right antecubital; zb 13:10 Follow up: Response: No adverse reaction; IV Status: Completed infusion; IV Intake: zb 500ml 13:50 Drug: Decadron - Dexamethasone 10 mg Route: IVP; Site: right antecubital; zb 15:50 Follow up: Response: No adverse reaction; Marked relief of symptoms zb Disposition: 16:09 Co-signature as Attending Physician, Rony Navas MD I agree with the assessment and kdr plan of care. Disposition: 01/10/20 15:21 Discharged to Home. Impression: Headache. - Condition is Stable. - Discharge Instructions: General Headache Without Cause. - Medication Reconciliation Form, Thank You Letter, Antibiotic Education, Prescription Opioid Use, Work release form form. - Follow up: Triston Prasad MD; When: 2 - 3 days; Reason: Recheck today's complaints, Continuance of care, Re-evaluation by your physician. Signatures: Dispatcher [employer] EDMS Rony Navas MD MD kdr Mickail, Joel, PA PA jmm Acob, Cheryl, RN RN ca1 Brown, Zipporah, RN RN zb Corrections: (The following items were deleted from the chart) 15:53 15:21 01/10/2020 15:21 Discharged to Home. Impression: Headache. Condition is Stable. zb Forms are Medication Reconciliation Form, Thank You Letter, Antibiotic Education, Prescription Opioid Use. Follow up: Triston Prasad; When: 2 - 3 days; Reason: Recheck today's complaints, Continuance of care, Re-evaluation by your physician. oralia
--- NOTE | 2020-01-10 15:22 | ER ---
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 Had routine Covid-19 testing done, Last test was a week ago. VS WNL. Zofran 4mg given IV, Toradol 30 mg IV given. IV G18 RAC started. Coronavirus screen: Client denies travel out of the [place] in the last 14 days. headache, vomiting. Client presents with at least one sign or symptom that may indicate coronavirus-19. Standard/surgical mask placed on the client. Provider contacted for isolation considerations. Ebola Screen: Patient negative for fever greater than or equal to 101.5 degrees Fahrenheit, and additional compatible Ebola Virus Disease symptoms Patient denies exposure to infectious person. Patient denies travel to an Ebola-affected area in the 21 days before illness onset. No symptoms or risks identified at this time. Initial Sepsis Screen: Does the patient meet any 2 criteria? No. Patient's initial sepsis screen is negative. Does the patient have a suspected source of infection? No. Patient's initial sepsis screen is negative. Risk Assessment: Do you want to hurt yourself or someone else? Patient reports no desire to harm self or others. Onset of symptoms was January 10, 2020. 11:29 Method Of Arrival: EMS: [facility] ca1 11:29 Acuity: CHUCKIE 3 ca1 Triage Assessment: 11:32 Headache History: Denies prior headaches. General: Appears in no apparent distress. ca1 uncomfortable, Behavior is cooperative, appropriate for age, anxious. Pain: Complains of pain in face and scalp Pain does not radiate. Pain currently is 10 out of 10 on a pain scale. Pain began 30 min ago. Also complains of nausea, shortness of breath, vomiting. EENT: No signs and/or symptoms were reported regarding the EENT system. Neuro: Level of Consciousness is awake, alert, obeys commands, Oriented to person, place, time, situation, Manager Dairy are equal bilaterally Moves all extremities. Speech is normal, Facial symmetry appears normal, Pupils are PERRLA, Intact. Cardiovascular: Heart tones S1 S2 present Capillary refill < 3 seconds Patient's skin is warm and dry. Respiratory: Airway is patent Respiratory effort is even, unlabored, Respiratory pattern is regular, symmetrical, Breath sounds are clear bilaterally. GI: Abdomen is flat, non-distended, Bowel sounds present X 4 quads. Abd is soft and non tender X 4 quads. Reports nausea, vomiting, once. : No signs and/or symptoms were reported regarding the genitourinary system. Derm: Skin is intact, is healthy with good turgor, Skin is pink, warm \T\ dry. Musculoskeletal: Circulation, motion, and sensation intact. Capillary refill < 3 seconds. 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 - Social history:: Smoking status: Patient denies any tobacco usage or history of. Screenin:34 Abuse screen: Denies threats or abuse. Denies injuries from another. Nutritional ca1 screening: No deficits noted. Tuberculosis screening: No symptoms or risk factors identified. Fall Risk IV access (20 points). Assessment: 11:34 Reassessment: see triage notes. Pain: Complains of pain in headache. ca1 12:18 General: Appears in no apparent distress. uncomfortable, Behavior is calm, cooperative, zb appropriate for age. Pain: Complains of pain in scalp Pain does not radiate. Pain currently is 10 out of 10 on a pain scale. Quality of pain is described as pressure, throbbing, Pain began 1 hour ago. Is continuous. Neuro: Level of Consciousness is awake, alert, obeys commands, Oriented to person, place, time, situation, Speech is normal. Cardiovascular: Capillary refill < 3 seconds in bilateral fingers Patient's skin is warm and dry. Respiratory: Airway is patent Trachea midline Respiratory effort is even, unlabored. GI: No signs and/or symptoms were reported involving the gastrointestinal system. : No signs and/or symptoms were reported regarding the genitourinary system. EENT: No signs and/or symptoms were reported regarding the EENT system. Derm: Skin is intact, Skin is normal. Musculoskeletal: No signs and/or symptoms reported regarding the musculoskeletal system. 13:36 Reassessment: Patient appears in no apparent distress at this time. No changes from zb previously documented assessment. Patient and/or family updated on plan of care and expected duration. Pain level reassessed. Patient is alert, oriented x 3, equal unlabored respirations, skin warm/dry/pink. c/o of pain. notified ECP. 14:30 Reassessment: Patient appears in no apparent distress at this time. Patient and/or zb family updated on plan of care and expected duration. Pain level reassessed. Patient is alert, oriented x 3, equal unlabored respirations, skin warm/dry/pink. 15:51 Reassessment: Patient appears in no apparent distress at this time. Patient and/or zb family updated on plan of care and expected duration. Pain level reassessed. Patient is alert, oriented x 3, equal unlabored respirations, skin warm/dry/pink. pt states she is feeling a lot better. Vital Signs: 11:29 BP 105 / 60; Pulse 63; Resp 19 S; Temp 97.7(O); Pulse Ox 100% on R/A; Weight 58.97 kg ca1 (R); Height 5 ft. 1 in. (154.94 cm) (R); Pain 10/10; 13:05 BP 98 / 58; Pulse 79; Resp 17 S; Pulse Ox 100% ; jd3 15:51 BP 100 / 60; Pulse 80; Resp 16; Pulse Ox 100% on R/A; zb 11:29 Body Mass Index 24.56 (58.97 kg, 154.94 cm) ca1 ED Course: 11:28 Patient arrived in ED. ca1 11:31 Valente Mcqueen PA is PHCP. [facility] 11:31 Rony Navas MD is Attending Physician. [facility] 11:32 Triage completed. ca1 11:32 Arm band placed on right wrist. ca1 11:34 Patient has correct armband on for positive identification. Placed in gown. Bed in low ca1 position. Call light in reach. Side rails up X2. Pulse ox on. NIBP on. Door closed. Noise minimized. Lights dimmed. Warm blanket given. 11:34 No provider procedures requiring assistance completed. ca1 11:34 Maintain EMS IV. Dressing intact. Good blood return noted. Site clean \T\ dry. Gauge \T\ ca 1 site: 18 G RAC. 11:35 Tracy Mcdaniel, RN is Primary Nurse. ca1 12:31 CT Head Brain wo Cont In Process Unspecified. EDMS 15:21 Triston Prasad MD is Referral Physician. m 15:53 IV discontinued, intact, bleeding controlled, No redness/swelling at site. Pressure zb dressing applied. Administered Medications: 12:17 Drug: Reglan 20 mg Route: IVP; Site: right antecubital; zb 13:10 Follow up: Response: No adverse reaction zb 12:18 Drug: diphenhydrAMINE 25 mg Route: IVP; Site: right antecubital; zb 13:00 Follow up: Response: No adverse reaction zb 12:18 Drug: NS 0.9% 500 ml Route: IV; Rate: bolus; Site: right antecubital; zb 13:10 Follow up: Response: No adverse reaction; IV Status: Completed infusion; IV Intake: zb 500ml 13:50 Drug: Decadron - Dexamethasone 10 mg Route: IVP; Site: right antecubital; zb 15:50 Follow up: Response: No adverse reaction; Marked relief of symptoms zb Intake: 13:10 IV: 500ml; Total: 500ml. zb Outcome: 15:21 Discharge ordered by MD. [facility] 15:52 Discharged to home ambulatory. zb 15:52 Condition: good 15:52 Discharge instructions given to patient, Instructed on discharge instructions, follow up and referral plans. Demonstrated understanding of instructions, follow-up care. 15:53 Patient left the ED. zb Signatures: Dispatcher [employer] EDMS Valente Mcqueen PA PA jmm Davies, Jonathon, RN RN jd3 Acob, Cheryl, RN RN ca1 Deloris Dhillon RN RN zb Corrections: (The following items were deleted from the chart) 15:53 15:52 Patient did not have IV access during this emergency room visit. zb zb
== END 2020-01-10 15:53 | disposition home or self-care (01) ==
LOC: ER 11:15
DX: R51.9 Headache, unspecified (principal); I10 Essential (primary) hypertension
CPT/HCPCS: 70450; 96361; 96374; 96375; 99284; J1100; J1200; J2765; J7040

== ENCOUNTER 2020-07-19 17:09 | Emergency (ER) | payer SELFPAY ==
--- NOTE | 2020-07-19 17:40 | EDPHYS ---
Physician Documentation [facility] Name: Maribell Karimi Age: 35 yrs Sex: Female : 1985 Arrival Date: 07/19/2020 Time: 17:11 Bed 27 Private MD: ED Physician Rony Navas HPI: 07/19 20:29 This 35 yrs old Female presents to ER via Ambulatory with complaints of Suture kb Removal, Incision Problem. 20:29 Patient presents to ED for recheck of: breast augmentation. The affected area is on the kb left breast and right breast. The patient has not experienced similar symptoms in the past. The patient has been recently seen by a physician: 1 month(s) ago. Pt had breast augmentation in [place] one month ago. Came in today because she believes there are some buried sutures in some areas causing pain. . 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 - Social history:: Smoking status: Patient denies any tobacco usage or history of. ROS: 20:22 Constitutional: Negative for fever, chills, and weight loss. kb 20:22 Skin: Positive for erythema, of the left breast and right breast, buried sutures. 20:22 All other systems are negative. Exam: 20:26 Constitutional: This is a well developed, well nourished patient who is awake, alert, kb and in no acute distress. ENT: Moist Mucous membranes Cardiovascular: Regular rate and rhythm with a normal S1 and S2. No gallops, murmurs, or rubs. No pulse deficits. Respiratory: Respirations even and unlabored. No increased work of breathing, no retractions or nasal flaring. Abdomen/GI: Soft, non-tender. No distention MS/ Extremity: Pulses equal, no cyanosis. Neurovascular intact. Full, normal range of motion. Neuro: Awake and alert, GCS 15, oriented to person, place, time, and situation. Moves all extremities. Normal gait. Psych: Awake, alert, with orientation to person, place and time. Behavior, mood, and affect are within normal limits. 20:26 Skin: surgical incision noted surrounding each areola. pencil eraser sized dehiscence to right breast at 6 o'clock with drainage and surrounding redness. right breast has some redness at 7-8 o'clock as well. Left breast has pencil eraser sized dehiscence to 12 o'clock with surrounding redness. Vital Signs: 17:33 BP 103 / 76; Pulse 94; Resp 18; Pulse Ox 100% on R/A; aj1 MDM: 17:22 Patient medically screened. kb 20:22 Data reviewed: vital signs, nurses notes. Data interpreted: Pulse oximetry: on room air kb is 100 %. Interpretation: normal. Counseling: I had a detailed discussion with the patient and/or guardian regarding: the historical points, exam findings, and any diagnostic results supporting the discharge/admit diagnosis, the need for outpatient follow up, a plastic surgeon, to return to the emergency department if symptoms worsen or persist or if there are any questions or concerns that arise at home. 07/19 17:36 Order name: Wound Culture kb Administered Medications: 18:08 Drug: KeFLEX (cephalexin) 500 mg Route: PO; aj1 18:09 Drug: Bactrim (trimethoprim-sulfamethoxazole) (160 mg-800 mg (DS) 1 tablet Route: PO; aj1 Disposition: 07/19/20 17:40 Discharged to Home. Impression: Local infection of the skin and subcutaneous tissue, unspecified. - Condition is Stable. - Discharge Instructions: Wound Infection, [id number]. - Prescriptions for Keflex 500 mg Oral Capsule - take 1 capsule by ORAL route every 8 hours for 10 days; 30 capsule. Bactrim DS 800- 160 mg Oral Tablet - take 1 tablet by ORAL route every 12 hours for 10 days; 20 tablet. - Medication Reconciliation Form, Thank You Letter, Antibiotic Education, Prescription Opioid Use, Work release form form. - Follow up: Emergency Department; When: As needed; Reason: Worsening of condition. Follow up: Private Physician; When: 2 - 3 days; Reason: Recheck today's complaints, Continuance of care, Re-evaluation by your physician. Addendum: 07/22/2020 11:15 Co-signature as Attending Physician, Rony Navas MD I agree with the assessment and k dr plan of care. Signatures: Dispatcher [employer] EDMS Tona Diaz, FLORENCE-C FLORENCE-Halina Huerta RN RN aj1 Rony Navas MD MD [facility] Corrections: (The following items were deleted from the chart) 07/19 18:19 17:40 07/19/2020 17:40 Discharged to Home. Impression: Local infection of the skin and aj1 subcutaneous tissue, unspecified. Condition is Stable. Forms are Medication Reconciliation Form, Thank You Letter, Antibiotic Education, Prescription Opioid Use. Follow up: Emergency Department; When: As needed; Reason: Worsening of condition. Follow up: Private Physician; When: 2 - 3 days; Reason: Recheck today's complaints, Continuance of care, Re-evaluation by your physician. kb
--- NOTE | 2020-07-19 17:40 | ER ---
Nurse's Notes [facility] Name: Maribell Karimi Age: 35 yrs Sex: Female : 1985 Arrival Date: 07/19/2020 Time: 17:11 Bed 27 Private MD: Diagnosis: Local infection of the skin and subcutaneous tissue, unspecified Presentation: 07/19 17:33 Chief complaint: Patient states: She had a breast augmentation done a month ago [address], and she did not realize there were sutures in it and now the incision is red and swollen and the sutures are covered with skin. Denies fever. Coronavirus screen: Client denies travel out of the [place] in the last 14 days. At this time, the client does not indicate any symptoms associated with coronavirus-19. Ebola Screen: No symptoms or risks identified at this time. Initial Sepsis Screen: Does the patient meet any 2 criteria? No. Patient's initial sepsis screen is negative. Does the patient have a suspected source of infection? Yes: Skin breakdown/wound. Risk Assessment: Do you want to hurt yourself or someone else? Patient reports no desire to harm self or others. Onset of symptoms was 2020. 17:33 Method Of Arrival: Ambulatory [facility] 17:33 Acuity: CHUCKIE 5 aj1 Triage Assessment: 17:36 General: Appears in no apparent distress. comfortable, Behavior is calm, cooperative, aj1 appropriate for age. Pain: Pain currently is 3 out of 10 on a pain scale. 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 - Social history:: Smoking status: Patient denies any tobacco usage or history of. Screenin:37 Abuse screen: Denies threats or abuse. Denies injuries from another. Nutritional aj1 screening: No deficits noted. Tuberculosis screening: No symptoms or risk factors identified. Fall Risk None identified. Assessment: 17:37 General: Appears in no apparent distress. comfortable, Behavior is calm, cooperative, aj1 appropriate for age. Pain: Complains of pain in right breast and left breast. Neuro: Level of Consciousness is awake, alert, obeys commands, Oriented to person, place, time, situation. Cardiovascular: Patient's skin is warm and dry. Respiratory: Airway is patent Respiratory effort is even, unlabored, Respiratory pattern is regular, symmetrical. GI: No signs and/or symptoms were reported involving the gastrointestinal system. : No signs and/or symptoms were reported regarding the genitourinary system. EENT: No signs and/or symptoms were reported regarding the EENT system. Derm: Wound noted right breast and left breast Other: Redness swelling and drainage noted to incisions to both breasts. Musculoskeletal: No signs and/or symptoms reported regarding the musculoskeletal system. Circulation, motion, and sensation intact. 18:19 Reassessment: Patient appears in no apparent distress at this time. No changes from aj1 previously documented assessment. Patient and/or family updated on plan of care and expected duration. Pain level reassessed. Patient is alert, oriented x 3, equal unlabored respirations, skin warm/dry/pink. Vital Signs: 17:33 BP 103 / 76; Pulse 94; Resp 18; Pulse Ox 100% on R/A; aj1 ED Course: 17:11 Patient arrived in ED. as 17:21 Tona Diaz FNP-C [facility]. kb 17:21 Rony Navas MD is Attending Physician. kb 17:33 Halina Boyer, WENDY is Primary Nurse. aj1 17:34 Triage completed. aj1 17:36 Arm band placed on Patient placed in an exam room. aj1 17:37 Patient has correct armband on for positive identification. Bed in low position. Call aj1 light in reach. Side rails up X 1. 17:37 No provider procedures requiring assistance completed. aj1 18:19 Patient did not have IV access during this emergency room visit. aj1 Administered Medications: 18:08 Drug: KeFLEX (cephalexin) 500 mg Route: PO; aj1 18:09 Drug: Bactrim (trimethoprim-sulfamethoxazole) (160 mg-800 mg (DS) 1 tablet Route: PO; aj1 Outcome: 17:40 Discharge ordered by . kb 18:19 Discharged to home ambulatory. aj1 18:19 Condition: good 18:19 Discharge instructions given to patient, Instructed on discharge instructions, follow up and referral plans. medication usage, Demonstrated understanding of instructions, follow-up care, medications, Prescriptions given X 2. 18:19 Patient left the ED. aj1 Addendum: 07/23/2020 08:38 Addendum: Culture Results: Positive wound culture. No further action required. Bacteria s s sensitive to prescribed antibiotic. Signatures: Tona Diaz, ALLIANCES CONSULTANT-C FLORENCE-Halina Huerta RN RN aj1 Lyndsay Art Shelby, RN RN ss
[2020-07-19] MEDS ORDERED: SMZ./TMP. 800/160 MG TABLET ONE (18:20)
[2020-07-19] MEDS ORDERED: CEPHALEXIN 250 MG CAP ONE (18:20)
[2020-07-19 19:18] VITALS: BP 103/76; O2SAT 100
== END 2020-07-19 18:19 | disposition home or self-care (01) ==
LOC: ER 17:09
DX: L08.9 Local infection of the skin and subcutaneous tissue, unspecified (principal); T81.31XA Disruption of external operation (surgical) wound, not elsewhere classified, initial encounter
CPT/HCPCS: 87070; 87077; 87186; 87205; 99283

== ENCOUNTER 2020-10-30 12:30 | Emergency (ER) | payer SELFPAY ==
[2020-10-30 13:01] LABS: Hematocrit 38.5 % (36.0-45.0); MPV 9.3 fL (7.6-11.3); RBC Red Blood Cell Count 4.65 M/uL (3.86-4.86)
[2020-10-30 13:12] LABS: Urine Blood 1+ (Negative); Urine Glucose Negative (Negative); Urine Protein Negative (Negative); Urine Specific Gravity 1.025 (1.005-1.030)
[2020-10-30] MEDS ORDERED: METOCLOPRAMIDE 10 MG/2mL INJ ONE (13:19)
[2020-10-30] MEDS ORDERED: NA CHLORIDE 0.9% 1,000 ML ONE (13:20)
[2020-10-30] MEDS ORDERED: KETOROLAC 30 MG/ML INJ ONE (13:20)
[2020-10-30] MEDS ORDERED: DIPHENHYDRAMINE 50 MG/ML VIAL ONE (13:20)
[2020-10-30 13:21] LABS: Albumin 4.3 g/dL (3.4-5.0); Bilirubin Total 0.5 mg/dL (0.2-1.0); Potassium 3.9 mmol/L (3.5-5.1); Protein, Total 8.4 g/dL (6.4-8.2)
--- NOTE | 2020-10-30 13:55 | EDPHYS ---
Physician Documentation [facility] Name: Maribell Karimi Age: 35 yrs Sex: Female : 1985 Arrival Date: 10/30/2020 Time: 12:31 Bed 5 Private MD: ED Physician Leighton Rodriguez HPI: 10/30 13:17 This 35 yrs old Female presents to ER via Wheelchair with complaints of ma2 migrain. 13:17 The patient complains of pain to the forehead. The patient describes the headache as ma2 aching. Onset: The symptoms/episode began/occurred gradually, 3 day(s) ago. Associated signs and symptoms: Pertinent negatives: dizziness, nausea, Photophobia sinus congestion, weakness. Severity of symptoms: At its worst the pain was mild, in the emergency department the pain is unchanged. Headache History: The patient has had previous headaches and this one is similar to previous episodes. The patient has experienced similar episodes in the past. 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 - Social history:: Smoking status: Patient denies any tobacco usage or history of. - Family history:: not pertinent. ROS: 13:17 Constitutional: Negative for fever, chills, and weight loss. ma2 13:17 All other systems are negative. Exam: 13:17 Constitutional: This is a well developed, well nourished patient who is awake, alert, ma2 and in no acute distress. 13:17 Head/Face: Normocephalic, atraumatic. Eyes: Pupils equal round and reactive to light, extra-ocular motions intact. Lids and lashes normal. Conjunctiva and sclera are non-icteric and not injected. Cornea within normal limits. Periorbital areas with no swelling, redness, or edema. Neck: Trachea midline, no thyromegaly or masses palpated, and no cervical lymphadenopathy. Supple, full range of motion without nuchal rigidity, or vertebral point tenderness. No Meningismus. Cardiovascular: Regular rate and rhythm with a normal S1 and S2. No gallops, murmurs, or rubs. Normal PMI, no JVD. No pulse deficits. Respiratory: Lungs have equal breath sounds bilaterally, clear to auscultation and percussion. No rales, rhonchi or wheezes noted. No increased work of breathing, no retractions or nasal flaring. Abdomen/GI: Soft, non-tender, with normal bowel sounds. No distension or tympany. No guarding or rebound. No evidence of tenderness throughout. Back: No spinal tenderness. No costovertebral tenderness. Full range of motion. Skin: Warm, dry with normal turgor. Normal color with no rashes, no lesions, and no evidence of cellulitis. MS/ Extremity: Pulses equal, no cyanosis. Neurovascular intact. Full, normal range of motion. Neuro: Awake and alert, GCS 15, oriented to person, place, time, and situation. Cranial nerves II-XII grossly intact. Motor strength 5/5 in all extremities. Sensory grossly intact. Cerebellar exam normal. Normal gait. Vital Signs: 12:34 BP 99 / 49; Pulse 71; Resp 17; Temp 97.3(TE); Pulse Ox 100% on R/A; Weight 59.87 kg tw2 (R); Height 5 ft. 1 in. (154.94 cm); Pain 10/10; 12:50 BP 114 / 66; Pulse 65; Resp 18; Pulse Ox 100% on R/A; Pain 8/10; ld1 14:22 BP 119 / 71; Pulse 70; Resp 16; Pulse Ox 100% on R/A; oh 12:34 Body Mass Index 24.94 (59.87 kg, 154.94 cm) tw2 MDM: 12:40 Patient medically screened. ma2 13:17 Differential diagnosis: hypoglycemia, hyponatremia, migraine, otitis, sinusitis. ma2 13:54 Data reviewed: vital signs, nurses notes. Counseling: I had a detailed discussion with ma2 the patient and/or guardian regarding: the historical points, exam findings, and any diagnostic results supporting the discharge/admit diagnosis, the presence of at least one elevated blood pressure reading (>120/80) during this emergency department visit, the need for outpatient follow up. Response to treatment: the patient's symptoms have markedly improved after treatment. ED course: has UTI and taking abx . 10/30 12:44 Order name: CBC w/o diff; Complete Time: 13:25 [facility] 10/30 12:44 Order name: CMP; Complete Time: 13:25 [facility] 10/30 13:12 Order name: Urine Dipstick-Ancillary; Complete Time: 13:25 [facility] 10/30 12:44 Order name: Urine Dipstick-Ancillary (obtain specimen); Complete Time: 13:16 ma2 Administered Medications: 13:03 Drug: Reglan (metoCLOPramide) 20 mg Route: IVP; Site: right antecubital; ld1 13:53 Follow up: Response: No adverse reaction ld1 13:03 Drug: Benadryl (diphenhydrAMINE) 25 mg Route: IVP; Site: right antecubital; ld1 13:53 Follow up: Response: No adverse reaction ld1 13:03 Drug: NS 0.9% 1000 ml Route: IV; Rate: 1 bolus; Site: right antecubital; ld1 13:52 Follow up: Response: No adverse reaction; IV Status: Completed infusion; IV Intake: ld1 1000ml 13:03 Drug: Ketorolac 30 mg Route: IVP; Site: right antecubital; ld1 13:52 Follow up: Response: No adverse reaction ld1 Disposition Summary: 10/30/20 13:55 Discharge Ordered Location: Home ma2 Condition: Stable ma2 Diagnosis - Dehydration ma2 - Migraine without aura, not intractable ma2 Followup: ma2 - With: Private Physician - When: Tomorrow - Reason: Continuance of care Discharge Instructions: - Discharge Summary Sheet ma2 - Dehydration, Adult ma2 - Migraine Headache, [id number] ma2 Forms: - Work release form tw2 - Medication Reconciliation Form ma2 - Thank You Letter ma2 - Antibiotic Education ma2 - Prescription Opioid Use ma2 Prescriptions: - Reglan 10 mg Oral Tablet - take 1 tablet by ORAL route every 6 hours . take 30 minutes before meals and at ks2 bedtime; 100 tablet; Refills: 0, Product Selection Permitted - Diclofenac Sodium 75 mg Oral Tablet Sustained Release - take 1 tablet by ORAL route 2 times per day; 30 tablet; Refills: 0, Product ks2 Selection Permitted Signatures: Dispatcher [employer] Bhavna Hancock RN RN 2 Leighton Rodriguez MD MD ma2 Monik Barrera, RN RN ld1
--- NOTE | 2020-10-30 13:55 | ER ---
Nurse's Notes [facility] Name: Maribell Karimi Age: 35 yrs Sex: Female : 1985 Arrival Date: 10/30/2020 Time: 12:31 Bed 5 Private MD: Diagnosis: Dehydration;Migraine without aura, not intractable Presentation: 10/30 12:34 Chief complaint: Patient states: i was at work. my vision got blurry and then i started tw2 feeling like i couldn't breathe. then i started feeling bad and got weak. 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 Coronavirus screen: At this time, the client does not indicate any symptoms associated with coronavirus-19. Ebola Screen: Patient denies travel to an Ebola-affected area in the 21 days before illness onset. Initial Sepsis Screen: Does the patient meet any 2 criteria? No. Patient's initial sepsis screen is negative. Does the patient have a suspected source of infection? No. Patient's initial sepsis screen is negative. Risk Assessment: Do you want to hurt yourself or someone else? Patient reports no desire to harm self or others. Onset of symptoms was October 30, 2020. 12:34 Method Of Arrival: Wheelchair tw2 12:34 Acuity: CHUCKIE 3 tw2 Triage Assessment: 12:37 Headache History: The patient has had previous headaches and this one is similar to tw2 previous episodes. General: Appears uncomfortable, Behavior is cooperative, appropriate for age. Pain: Complains of pain in headache Pain currently is 10 out of 10 on a pain scale. Pain began suddenly, Also complains of nausea. Neuro: Reports blurred vision headache. 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 - Social history:: Smoking status: Patient denies any tobacco usage or history of. - Family history:: not pertinent. Screenin:50 Abuse screen: Denies threats or abuse. Denies injuries from another. Nutritional ld1 screening: No deficits noted. Tuberculosis screening: No symptoms or risk factors identified. Fall Risk None identified. Assessment: 12:50 General: Appears in no apparent distress. comfortable, Behavior is calm, cooperative, ld1 appropriate for age. Pain: Complains of pain in face Pain does not radiate. Pain currently is 8 out of 10 on a pain scale. Quality of pain is described as throbbing, Pain began suddenly, 1 hour ago. Is continuous. Neuro: Level of Consciousness is awake, alert, obeys commands, Oriented to person, place, time, situation. Cardiovascular: Capillary refill < 3 seconds Patient's skin is warm and dry. Respiratory: Airway is patent Respiratory effort is even, unlabored, Respiratory pattern is regular, symmetrical. GI: Abdomen is flat, non-distended. : No signs and/or symptoms were reported regarding the genitourinary system. EENT: No signs and/or symptoms were reported regarding the EENT system. Derm: No signs and/or symptoms reported regarding the dermatologic system. Musculoskeletal: No signs and/or symptoms reported regarding the musculoskeletal system. Vital Signs: 12:34 BP 99 / 49; Pulse 71; Resp 17; Temp 97.3(TE); Pulse Ox 100% on R/A; Weight 59.87 kg tw2 (R); Height 5 ft. 1 in. (154.94 cm); Pain 10/10; 12:50 BP 114 / 66; Pulse 65; Resp 18; Pulse Ox 100% on R/A; Pain 8/10; ld1 14:22 BP 119 / 71; Pulse 70; Resp 16; Pulse Ox 100% on R/A; oh 12:34 Body Mass Index 24.94 (59.87 kg, 154.94 cm) tw2 ED Course: 12:31 Patient arrived in ED. as 12:36 Triage completed. tw2 12:37 Arm band placed on. tw2 12:40 Leighton Rodriguez MD is Attending Physician. ma2 12:50 Patient has correct armband on for positive identification. Placed in gown. Bed in low ld1 position. Call light in reach. Side rails up X2. monitoring specialist on. Pulse ox on. NIBP on. Door closed. Noise minimized. Warm blanket given. 12:50 No provider procedures requiring assistance completed. Inserted saline lock: 20 gauge ld1 in right antecubital area, using aseptic technique. Blood collected. 12:53 CMP Sent. ld1 12:53 CBC w/o diff Sent. ld1 14:23 IV discontinued, bleeding controlled, Pressure dressing applied. oh Administered Medications: 13:03 Drug: Reglan (metoCLOPramide) 20 mg Route: IVP; Site: right antecubital; ld1 13:53 Follow up: Response: No adverse reaction ld1 13:03 Drug: Benadryl (diphenhydrAMINE) 25 mg Route: IVP; Site: right antecubital; ld1 13:53 Follow up: Response: No adverse reaction ld1 13:03 Drug: NS 0.9% 1000 ml Route: IV; Rate: 1 bolus; Site: right antecubital; ld1 13:52 Follow up: Response: No adverse reaction; IV Status: Completed infusion; IV Intake: ld1 1000ml 13:03 Drug: Ketorolac 30 mg Route: IVP; Site: right antecubital; ld1 13:52 Follow up: Response: No adverse reaction ld1 Intake: 13:52 IV: 1000ml; Total: 1000ml. ld1 Outcome: 13:55 Discharge ordered by . pepe 14:22 Discharged to home ambulatory. oh 14:22 Condition: good 14:22 Discharge instructions given to patient. 14:23 Patient left the ED. oh Signatures: Lyndsay Art Tara RN RN 2 Leighton Rodriguez MD MD ma2 Monik Barrera RN RN ld1 Hollis Horowitz RN RN oh
[2020-10-30 14:41] VITALS: TEMP 97.3; O2SAT 100
[2020-10-30 14:44] VITALS: BP 119/71
== END 2020-10-30 14:23 | disposition home or self-care (01) ==
LOC: ER 12:30
DX: G43.009 Migraine without aura, not intractable, without status migrainosus (principal); E86.0 Dehydration
CPT/HCPCS: 36415; 80053; 81003; 85027; 96361; 96374; 96375; 99284; J1200; J2765; J7030

== ENCOUNTER 2022-12-07 11:38 | Emergency (ER) | payer SELFPAY ==
--- OUTSIDE RECORDS SUMMARY | 2022-12-07 11:41 | XMS REPORT | Continuity of Care Document ---
:1985 Author Organization [facility] t Address [address] [facility] [place] [address] Care Team Providers Name Role Phone Pcp, Patient Does Not Have A Primary Care Physician [phone] Johanna SALES COMMUNICATIONS MANAGER, [place] Attending Clinician Marvin ATKINS, Melody Delcid Attending Clinician Problems Condition Condition Condition Status Onset Resolution Last Treating Co mments Source Name Details Category Date Date Treatment Clinician Date Screening Screening Disease Active Overview: Univers for STD for STD 10-24 Formattin ity o f (sexually (sexually 00:00: g of this [place] transmitte transmitte 00 note Me dical d disease) d disease) might be Branch different from the original. 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 H/O tubal H/O tubal Disease Active Uni vers ligation ligation 10-24 ity of 00:00: [address] Allergies, Adverse Reactions, Alerts Allergy Allergy Status Severity Reaction(s) Onset Inactive Treating Comm ents Source Name Type Date Date Clinician NO KNOWN Drug Active Univers ALLERGIE Class ity of S [facility] Social History Social Habit Start Date Stop Date Quantity Comments Source Exposure to Not sure University of SARS-CoV-2 [facility] [place] [facility] (event) [place] Tobacco use and 2020-10-14 2020-10-14 Never used Universit y of exposure 00:00:00 00:00:00 [facility] Alcohol intake 2020-10-14 2020-10-14 Current drinker Unive rsity of 00:00:00 00:00:00 of alcohol [facility] [place] [facility] (finding) Branch Alcohol Comment 2013-10-24 2013-10-24 on occasion Universi ty of 00:00:00 00:00:00 [facility] Sex Ass[birth year] At [birth year] Universit y of 00:00:00 00:00:00 [facility] Smoking Status Start Date Stop Date Source Never smoker [facility] Medications Ordered Filled Start Stop Current Ordering Indication Dosage Frequency Signature Comments Components Source Medication Medication Date Date Medication? Clinician (SIG) Name Name acyclovir 5 Yes [id number] Apply to Univers % ointment 10-14 area(s) 5 ity of 00:00: (five) [place] 00 times Medical daily. Branch acyclovir 5 Yes [id number] Apply to Univers % ointment 10-14 area(s) 5 ity of 00:00: (five) [place] 00 times Medical daily. Branch valACYclovi 2020- No [id number] 1g Take 1 Univers r 1 gram 10-14 tablet by ity o f tablet 00:00: 04:59 mouth 3 [place] 00 :00 (three) Medical times [place] daily for 7 days. mupirocin 2020- No [id number] Apply to Univers (BACTROBAN) 10-14 affected ity of 2 % cream 00:00: 04:59 area(s) 3 [place] :[place] (three) Medical times [place] daily for 7 days. valACYclovi 2020- No [id number] 1g Take 1 Univers r 1 gram 10-14 tablet by ity o f tablet 00:00: 04:59 mouth 3 [place] 00 :00 (three) Medical times Branch daily for 7 days. mupirocin 2020- No [id number] Apply to Univers (BACTROBAN) 10-14 affected ity of 2 % cream 00:00: 04:59 area[place] 3 [place] (three) Medical times [place] daily for 7 days. hydrocortis 2020- No [id number] Apply to Univers one 1 % 10-12 affected ity of cream 00:00: 04:59 area(s) 2 [place] 00 :00 (two) Medical times [place] daily for 5 days. hydrocortis 2020- No [id number] Apply to Univers one 1 % 10-12 affected ity of cream 00:00: 04:59 area(s) 2 [place] 00 :00 (two) Medical times Branch daily for 5 days. hydrocortis 2020- No [id number] Apply to Univers one 1 % 10-12 affected ity of cream 00:00: 04:59 area(s) 2 [place] 00 :00 (two) Medical times Branch daily for 5 days. hydrocortis 2020- No [id number] Apply to Univers one 1 % 10-12 affected ity of cream 00:00: 04:59 area(s) 2 [place] 00 :00 (two) Medical times Branch daily for 5 days. ciprofloxac 2017- Yes 500mg Take 1 Uni vers in HCl 500 1-29 tablet by ity of mg tablet 00:00: mouth 2 [place] (two) Medical times Branch daily. ciprofloxac 2017- Yes 500mg Take 1 Uni vers in HCl 500 1-29 tablet by ity of mg tablet 00:00: mouth 2 [place] (two) Medical times Branch daily. ciprofloxac 2017- Yes 500mg Take 1 Uni vers in HCl 500 1-29 tablet by ity of mg tablet 00:00: mouth 2 [place] (two) Medical times Branch daily. ciprofloxac 2017- Yes 500mg Take 1 Uni vers in HCl 500 1-29 tablet by ity of mg tablet 00:00: mouth 2 [place] (two) Medical times Branch daily. Vital Signs Vital Name Observation Time Observation Value Comments Source Systolic blood 2020-10-14 14:55:00 131 mm[Hg] Univer sity of pressure [facility] Diastolic blood 2020-10-14 14:55:00 92 mm[Hg] [facility] Heart rate 2020-10-14 14:55:00 86 /min [facility] Body temperature 2020-10-14 14:55:00 37.28 Tati [facility] Respiratory rate 2020-10-14 14:55:00 16 /min [facility] Body weight 2020-10-14 14:55:00 60.782 kg Universi ty of [facility] BMI 2020-10-14 14:55:00 25.32 kg/m2 Universi ty of [facility] Oxygen saturation in 2020-10-14 14:55:00 100 /min University of Arterial blood by [facility] Pulse oximetry Branch Systolic blood 2020-10-12 23:38:00 112 mm[Hg] Univer sity of pressure [facility] Diastolic blood 2020-10-12 23:38:00 56 mm[Hg] Unive rsity of pressure [facility] Heart rate 2020-10-12 23:38:00 74 /min Universi ty of [facility] Body temperature 2020-10-12 23:38:00 37.22 Tati [facility] Respiratory rate 2020-10-12 23:38:00 18 /min Univ ersity of [facility] Body weight 2020-10-12 23:38:00 55.792 kg Universi ty [facility] BMI 2020-10-12 23:38:00 23.24 kg/m2 Universi ty [facility] Oxygen saturation in 2020-10-12 23:38:00 99 /min University of Arterial blood by [facility] Pulse oximetry Branch Procedures Procedure Date / Time Performed Performing Clinician [facility] e NOTICE OF PRIVACY 2020-10-12 23:33:49 Doctor Unassigned, No [facility] Name Medical Branch CONSENT/REFUSAL FOR 2020-10-12 23:33:09 Doctor Unassigned, No [facility] DI[facility] AND Name Medical Branch TREATMENT Encounters Start End Encounter Admission Attending Care Care Encounter Source Date/Time Date/Time Type Type Clinicians Facility Department ID 2020-10-14 2020-10-14 Emergency [facility], [facility] [id number] [facility] 09:56:00 11:11:00 Mile Aguilar [id number] itAgustin [id number] [facility] [id number] [facility] 084 Branch 2020-10-14 2020-10-14 Emergency X [facility] ERT [id number] Univers 09:50:00 09:50:00 ity of [facility] 2020-10-12 2020-10-12 Emergency [facility], [facility] [id number] Univers 18:39:00 20:22:00 [id number] [id number] [facility] [id number] [place] [address] Branch 2020-10-12 2020-10-12 Emergency X [facility] ERT [id number] Univers 18:32:00 18:32:00 ity [facility] Results Test Description Test Time Test Comments Results Result Comments Source PAP TEST, THINPREP, IMAGED 2021-07-02 17:49:57 Test Item Value Reference Range Interpretation Comme nts SOURCE: (test code = Cervical/Endocervical 8001) SLIDES: (test code = 1 8011) LMP: (test code = 05/09/2021 8021) SPECIMEN ADEQUACY: (NOTE) Nagi randall for (test code = 93166) evaluati on. Endocervical cells/transform ation zone component prese nt. INTERPRETATION: NILM/NO EPITH. ABNORMALITY;SEE (test code = 97288) BELOW -------- NEGATIVE FOR INTRAEPITHE LIAL LESION OR MALIGNANCY ( NILM) -- FLOOR SWEEPER: Alayna Davidson (test code = 8101) LOCATION: (test code (NOTE) Specime ns processed and = 63803) [facility] at [facility] [address] [place] [address], Phone: , CLIA: [id number] CPT: (test code = (NOTE) 19100 UNLE SS OTHERWISE 8140) INDICATED, COMP UTER AIDED AND CYTOTECHNOL OGIST SCREENING PERFO RMED. The Pap test is a scree willy test with an inheren t, but low probability of error. Your patient should be reminded to consult you immediately if she experien milan any suspicious sign s or symptoms, regar dless of her Pap test result . An alternate repor t format containing imag es or consolidated pr ior Pap history is avai lable as applicable. CT/NG, TMA, [id number] 17:39:43 Test Item Value Reference Range Interpretation Comments GONORRHEA, TMA NEGATIVE NEGATIVE Assay method ology is (test code = nucleic acid am plification 39317) by transcriptio n mediated amplification ( TMA) utilizing the A ptima Combo 2 Assay. CHLAMYDIA, TMA NEGATIVE NEGATIVE Assay method ology is (test code = nucleic acid am plification 80834) by transcriptio n mediated amplification ( TMA) utilizing the A ptima Combo 2 Assay. HPV HIGH RISK WITH GENOTYPE, [id number] 17:32:09 Test Item Value Reference Range Interpretation Comments HPV HIGH RISK INTERP NEGATIVE NEGATIVE (test code = 10643) HPV 16 (test code = NEGATIVE 24854) HPV 18 (test code = NEGATIVE 46849) HPV, HR, OTHER NEGATIVE Testing meth odology is GENOTYPES (test code real-ti me PCR utilizing = 13943) hydrolysis prob es with the [place] 4800 system. The nicole t individually de tects genotypes 16 an d 18, as well as the oth er 12 high risk types (31,33,35,39,45 ,51,52,56 ,58,59,66,68). The expected result is negative. A ne gative result does not rule out the presence of HPV not included in the genotype set, a low leve l of infection or sp ecimen sampling error. UNLESS OTHERWISE INDIC ATED, ALL TESTING PERFORM [facility] [place]. [address] [place] [address] LABORATORY DIRE CTOR: JANICE DANIEL M.D. CLIA NUMBER [id number] [place] [id number] VAGINAL PATHOGENS DNA [id number] 16:10:57 Test Item Value Reference Range Interpretation Comments EDWARD SPECIES (test code = 58587) POSITIVE NEGATIVE A G. VAGINALIS (test code = 57010) POSITIVE NEGATIVE A T. VAGINALIS (test code = 14293) NEGATIVE NEGATIVE HEPATITIS PANEL, [id number] 06:44:41 Test Item Value Reference Range Interpretation Comments HEPATITIS A IgM (test NON-REACTIVE NON-REACTIVE code = 99882) HEPATITIS B CORE IgM NON-REACTIVE NON-REACTIVE (test code = 4644) HEPATITIS B SURF AG NON-REACTIVE NON-REACTIVE (test code = 2739) HEPATITIS C ANTIBODY NON-REACTIVE NON-REACTIVE (test code = 4675) INTERPRETATION (NOTE) Hepatitis A HEPATITIS A: (test code sero logy shows no = 2552) evidence of acu te hepatitis A. INTERPRETATION (NOTE) Hepatitis B HEPATITIS B: (test code sero logy shows no = 27550) evidence of acu te hepatitis B and no indication of exposure to hepatitis B vir us in the previous mracel eight months. INTERPRETATION (NOTE) Hepatitis C HEPATITIS C: (test code sero logy shows no = 22498) evidence of exposure to hepatitisC viru s at this time. I t can take up to 12 months after exposure tothe hepatitis C vir us for antibodies to become detectab le in the blood in certain patient s. HIV 1/2 4TH GEN, RFLX [id number] 06:44:41 Test Item Value Reference Range Interpretation Comments HIV 1/2 4TH GEN, RFLX CONF (test NON-REACTIVE NON-REACTIVE code = 3514) [id number] 05:11:05 Test Item Value Reference Range Interpretation Comments RPR RESULT (test NON-REACTIVE NON-REACTIVE code = 3501) RPR TITER (test NOT INDIC. NOT INDIC. UNLESS OTHE RWISE code = 3500) TITER INDICATED, ALL TESTING PERFORMED [facility] [address] [place] [address] 4 LABORATORY DIRE CTOR: JANICE DANIEL M.D. CLIA NUMBER [id number] [place]. [id number]
[2022-12-07] MEDS ORDERED: ACETAMINOPHEN 325 MG TABLET ONE (12:06)
[2022-12-07] MEDS ORDERED: IBUPROFEN 200 MG TAB PO ONE (12:06)
[2022-12-07] MEDS ORDERED: ONDANSETRON 4 MG (ODT) TAB ONE (12:06)
[2022-12-07 12:10] LABS: SARS-CoV-2 Antigen Rapid Res Negative (Negative)
--- NOTE | 2022-12-07 12:56 | EDPHYS ---
Physician Documentation [facility] Name: Maribell Karimi Age: 37 yrs Sex: Female : 1985 Arrival Date: 12/07/2022 Time: 11:38 Bed 12 Private MD: ED Physician Trevin Araujo HPI: 12/07 11:49 This 37 yrs old Female presents to ER via Ambulatory with complaints of Flu rn Symptoms, Headache. 11:49 The patient complains of pain to the top of head and forehead. The patient describes rn the headache as aching. Onset: The symptoms/episode began/occurred this morning. Associated signs and symptoms: Pertinent positives: fever, nausea, sinus congestion, Pertinent negatives: dizziness, neck stiffness, rash, vision changes, vision loss, vertigo. Severity of symptoms: At its worst the pain was moderate, in the emergency department the pain is unchanged. The symptoms are alleviated by nothing. the symptoms are aggravated by nothing. The patient has not experienced similar symptoms in the past. The patient has not recently seen a physician. Patient reports started feeling ill yesterday, worse today with headache/fever/chills/runny nose/congestion/sore throat. Did have an episode of vomiting prior to arrival. No abdominal pain. No chest pain. No shortness of breath. No neck stiffness.. BUNCHER HAND: 13:00 LMP N/A - , Not iw Historical: - Allergies: 11:48 No Known Allergies; iw - PMHx: 11:48 Has had a blood transfusion before; Hypertension; iw - Immunization history:: Adult Immunizations unknown. - Family history:: not pertinent. - Social history:: Smoking status: unknown. - Hospitalizations: : No recent hospitalization is reported. ROS: 11:49 Constitutional: Positive for fever and chills Eyes: Negative for injury, pain, redness, rn and discharge, ENT: Positive for nasal congestion and sore throat Neck: Negative for injury, pain, and swelling, Cardiovascular: Negative for chest pain, palpitations, and edema, Respiratory: Negative for shortness of breath, cough, wheezing, and pleuritic chest pain, Abdomen/GI: Positive for nausea and vomiting, negative for abdominal pain, negative for blood in the stool : Negative for injury, bleeding, discharge, and swelling, MS/Extremity: Negative for injury and deformity, Skin: Negative for injury, rash, and discoloration, Neuro: Negative for numbness, tingling, and seizure, Exam: 11:49 Constitutional: This is a well developed, well nourished patient who is awake, alert, rn and in no acute distress. Head/Face: Normocephalic, atraumatic. Eyes: Periorbital areas with no swelling, redness, or edema. ENT: Oropharynx with mild redness. No stridor. Moist mucous membranes Neck: Trachea midline, no thyromegaly or masses palpated, and no cervical lymphadenopathy. Supple, full range of motion without nuchal rigidity, or vertebral point tenderness. No Meningismus. Cardiovascular: Regular rate and rhythm. No pulse deficits. Respiratory: No increased work of breathing, no retractions or nasal flaring. Abdomen/GI: Soft, non-tender MS/ Extremity: Pulses equal, no cyanosis. Neurovascular intact. Full, normal range of motion. Equal circumference. Neuro: Awake and alert, GCS 15, oriented to person, place, time, and situation. Vital Signs: 11:50 BP 110 / 57; Pulse 71; Resp 16; Pulse Ox 100% on R/A; iw [place] Coma Score: 12:54 Eye Response: spontaneous(4). Motor Response: obeys commands(6). Verbal Response: rn oriented(5). Total: 15. MDM: 11:41 Patient medically screened. rn 12:54 Differential diagnosis: vasomotor headache, Flu, COVID, viral syndrome, sinusitis. Data rn reviewed: vital signs, nurses notes, lab test result(s), and as a result, I will discharge patient. Counseling: I had a detailed discussion with the patient and/or guardian regarding the historical points, exam findings, and any diagnostic results supporting the discharge/admit diagnosis, lab results, the need for outpatient follow up, to return to the emergency department if symptoms worsen or persist or if there are any questions or concerns that arise at home. Special discussion: I discussed with the patient/guardian in detail that at this point there is no indication for admission to the hospital. It is understood, however, that if the symptoms persist or worsen the patient needs to return immediately for re-evaluation. 12/07 11:42 Order name: Flu; Complete Time: 12:52 rn 12/07 11:42 Order name: SARS RAPID; Complete Time: 12:20 rn Administered Medications: 11:56 Drug: Acetaminophen PO 650 mg PO once Route: PO; iw 12:15 Follow up: Response: No adverse reaction iw 11:56 Drug: Ibuprofen PO 600 mg PO once Route: PO; iw 12:15 Follow up: Response: No adverse reaction iw 11:56 Drug: Ondansetron Oral Disintegrating Tablet Oral Disintegrating Tablet 4 mg PO once iw Route: PO; 12:10 Follow up: Response: No adverse reaction iw Disposition Summary: 12/07/22 12:55 Discharge Ordered Notes: Location: Home rn Problem: new rn Symptoms: have improved rn Condition: Stable rn Diagnosis - Acute upper respiratory infection, unspecified rn Followup: rn - With: Private Physician - When: As needed - Reason: Recheck today's complaints, Re-evaluation by your physician Discharge Instructions: - Discharge Summary Sheet rn - Upper Respiratory Infection, Adult rn Forms: - Medication Reconciliation Form rn - Thank You Letter rn - Antibiotic events intern - Prescription Opioid Use rn - Patient Portal Instructions rn - Leadership Thank You Letter rn Prescriptions: - Augmentin 875-125 mg Oral Tablet - take 1 tablet ORAL route every 12 hours for 10 days; 20 tablet; Refills: 0, rn Product Selection Permitted Signatures: Dispatcher [employer] Terri Santos RN RN iw Trevin Araujo MD MD churner: (The following items were deleted from the chart) 11:51 11:49 Constitutional: Positive for fever and chills Eyes: Negative for injury, pain, rn redness, and discharge, ENT: Positive for nasal congestion and sore throat Neck: Negative for injury, pain, and swelling, Cardiovascular: Negative for chest pain, palpitations, and edema, Respiratory: Negative for shortness of breath, cough, wheezing, and pleuritic chest pain, Abdomen/GI: Positive for nausea and vomiting, negative for abdominal pain, negative for blood in the stool : Negative for injury, bleeding, discharge, and swelling, MS/Extremity: Negative for injury and deformity, Skin: Negative for injury, rash, and discoloration, Neuro: Negative for headache, weakness, numbness, tingling, and seizure, rn
--- NOTE | 2022-12-07 12:56 | ER ---
Nurse's Notes [facility] Name: Maribell Karimi Age: 37 yrs Sex: Female : 1985 Arrival Date: 12/07/2022 Time: 11:38 Bed 12 Private MD: Diagnosis: Acute upper respiratory infection, unspecified Presentation: 12/07 11:47 Chief complaint: Patient states: headache this morning, felt dizzy and light headed, iw vomited X 4. Coronavirus screen: At this time, the client does not indicate any symptoms associated with coronavirus-19. Ebola Screen: Patient negative for fever greater than or equal to 101.5 degrees Fahrenheit, and additional compatible Ebola Virus Disease symptoms Patient denies exposure to infectious person. Patient denies travel to an Ebola-affected area in the 21 days before illness onset. No symptoms or risks identified at this time. Initial Sepsis Screen: Does the patient meet any 2 criteria? No. Patient's initial sepsis screen is negative. Does the patient have a suspected source of infection? No. Patient's initial sepsis screen is negative. Risk Assessment: Do you want to hurt yourself or someone else? Patient reports no desire to harm self or others. Onset of symptoms was December 07, 2022. 11:47 Method Of Arrival: Ambulatory iw 11:47 Acuity: CHUCKIE 3 iw Triage Assessment: 13:08 Headache History: The patient has had previous headaches and this one is similar to iw previous episodes. General: Appears in no apparent distress. General: Behavior is calm, cooperative. Pain: Also complains of no other associated symptoms. Pain:. Pain: Pain currently is 5 out of 10 on a pain scale. THREAD CLIPPER: 13:00 LMP N/A - , Not iw Historical: - Allergies: 11:48 No Known Allergies; iw - PMHx: 11:48 Has had a blood transfusion before; Hypertension; iw - Immunization history:: Adult Immunizations unknown. - Family history:: not pertinent. - Social history:: Smoking status: unknown. - Hospitalizations: : No recent hospitalization is reported. Screenin:04 [facility] ED Fall Risk Assessment (Adult) Score/Fall Risk Level 0 - 2 = Low Risk. Abuse iw screen: Denies threats or abuse. Denies injuries from another. Nutritional screening: No deficits noted. Tuberculosis screening: No symptoms or risk factors identified. Assessment: 12:03 General: Appears in no apparent distress. Behavior is calm, cooperative. Pain: iw Complains of pain in forehead and top of head. Neuro: Level of Consciousness is awake, alert, obeys commands, Oriented to person, place, time, situation, Moves all extremities. Full function. Cardiovascular: Patient's skin is warm and dry. Respiratory: Respiratory effort is even, unlabored, Respiratory pattern is regular. Derm: Skin is intact, is healthy with good turgor. Musculoskeletal: Range of motion: intact in all extremities. Vital Signs: 11:50 BP 110 / 57; Pulse 71; Resp 16; Pulse Ox 100% on R/A; iw [place] Coma Score: 12:54 Eye Response: spontaneous(4). Motor Response: obeys commands(6). Verbal Response: rn oriented(5). Total: 15. ED Course: 11:39 Patient arrived in ED. rg4 11:41 Trevin Araujo MD is Attending Physician. rn 11:48 Triage completed. iw 11:48 Arm band placed on. iw 11:50 Terri Mohr RN is Primary Nurse. iw 11:54 SARS RAPID Sent. bc6 11:54 Flu Sent. bc6 13:04 Patient has correct armband on for positive identification. Provided Education on: . iw 13:08 No provider procedures requiring assistance completed. Patient did not have IV access iw during this emergency room visit. Administered Medications: 11:56 Drug: Acetaminophen PO 650 mg PO once Route: PO; iw 12:15 Follow up: Response: No adverse reaction iw 11:56 Drug: Ibuprofen PO 600 mg PO once Route: PO; iw 12:15 Follow up: Response: No adverse reaction iw 11:56 Drug: Ondansetron Oral Disintegrating Tablet Oral Disintegrating Tablet 4 mg PO once iw Route: PO; 12:10 Follow up: Response: No adverse reaction iw Medication: 12:04 VIS not applicable for this client. iw Outcome: 12:55 Discharge ordered by . rn 13:08 Discharged to home ambulatory, iw 13:08 Condition: good 13:08 Discharge instructions given to patient, Instructed on discharge instructions, follow up and referral plans. medication usage, Demonstrated understanding of instructions, follow-up care, medications, Prescriptions given X 1, 13:09 Patient left the ED. iw Signatures: Onur, Terri, RN Trevin Rivers MD MD rn Garcia, Rubi rg4 Wen Carbajal 6
[2022-12-07 13:14] VITALS: BP 110/57; O2SAT 100
== END 2022-12-07 13:09 | disposition home or self-care (01) ==
LOC: ER 11:38
DX: J06.9 Acute upper respiratory infection, unspecified (principal); Z11.52 Encounter for screening for COVID-19
CPT/HCPCS: 36415; 87804; 87811; 99283; Q0162

== ENCOUNTER 2024-11-08 19:09 | Emergency (ER) | payer SELFPAY ==
--- OUTSIDE RECORDS SUMMARY | 2024-11-08 19:12 | XMS REPORT | Clinical Summary ---
Author Name Unknown Organization [facility] Address [address] [place] [address] Care Team Providers Care Account Classification Clerk Name Role Phone Unavailable Primary Care Provider Unavailabl e Encounters Date Type Department Care Team Description 12/25/2023 Documentation Breast Imaging [address]th Floor Ele[address] [place], [place] [id number] Martine Martin, RT after 11/09/2023 Social History Tobacco Use Types Packs/Day Years Used Date Smoking Tobacco: Never Assessed Comments Unknown Sex and Gender Information Value Date Recorded Sex Assigned at Not on file 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
[2024-11-08] MEDS ORDERED: HYDROCODONE/APAP 5/325 MG TAB ONE (19:56)
--- NOTE | 2024-11-08 21:26 | RAD REPORT ---
EXAMINATION: UPPER EXTREMITY VENOUS UNILATE CLINICAL INDICATION: Female, 39 years old. [facility] MAIN PAIN Bed Name: [id number] TECHNIQUE: Complete venous duplex sonography of the right upper extremity was performed. The examinat ion included compression for vein patency, color Doppler imaging and flow augmentation in response to distal compression of the internal jugular, brachiocephalic, subclavian, axillary, brachial, radia l, ulnar, cephalic and basilic veins. COMPARISON: No prior exam. FINDINGS: Duplex sonography testing of the veins of the right upper extremity is completed. Color flow imaging shows all veins to be compressible with appropriate color filling. Pulsatile and phasic flow is present within the upper extremity deep and superficial veins examined. Lobulated superficial region of hypoechogenicity, with internal vascular flow, may represent a superficial varicosity. IMPRESSION: There is no deep vein or superficial vein thrombosis.
--- NOTE | 2024-11-08 22:40 | EDPHYS ---
Physician Documentation [facility] Name: Maribell Karimi Age: 39 yrs Sex: Female : 1985 Arrival Date: 11/08/2024 Time: 19:09 Bed 10 Private MD: ED Physician Tucker Sierra HPI: 11/08 20:01 This 39 yrs old Female presents to ER via Ambulatory with complaints of Wrist kb Pain, Arm Pain. 20:01 Patient is a 39-year-old female who presents for pain to right wrist that started 1 kb hour ago with radiation of pain down hand and up to shoulder. Denies injury or trauma. Also reports swelling to the area and that her veins are feeling weird on the inside.. Historical: - Allergies: 19:25 No Known Allergies; dd2 - PMHx: 19:25 Has had a blood transfusion before; Hypertension; dd2 - PSHx: 19:25 None; dd2 - Immunization history:: Adult Immunizations unknown. - Infectious Disease History:: Denies. - Social history:: Smoking status: Patient denies any tobacco usage or history of. ROS: 20:01 Constitutional: As per HPI kb Exam: 20:01 Constitutional: This is a well developed, well nourished patient who is awake, alert, kb and in no acute distress. Head/Face: Normocephalic, atraumatic. ENT: Moist Mucous membranes Respiratory: Respirations even and unlabored. No increased work of breathing. Talking in full sentences Skin: Warm, dry with normal turgor. Normal color. Neuro: Awake and alert, GCS 15, oriented to person, place, time, and situation. 20:01 Musculoskeletal/extremity: Extremities: grossly normal except: noted in the lateral aspect of right wrist: pain, tenderness, Cyst, ROM: limited active range of motion due to pain, Circulation is intact in all extremities. Sensation intact. Vital Signs: 19:25 BP 105 / 73; Pulse 73; Resp 16; Temp 97.8; Pulse Ox 100% on R/A; Weight 62.6 kg; Height dd2 5 ft. 1 in. ; Pain 7/10; 21:14 BP 101 / 55; Pulse 66; Resp 18; Pulse Ox 99% ; Pain 6/10; rg5 22:35 BP 115 / 60; Pulse 68; Resp 18; Pulse Ox 100% ; rg5 19:25 Body Mass Index 26.07 (62.60 kg, 154.94 cm) dd2 19:25 Pain Scale: Adult dd2 21:14 Pain Scale: Adult rg5 MDM: 19:13 Medical Screening Exam initiated kb 20:03 Differential diagnosis: tendonitis, Cyst, pinched nerve. Data reviewed: vital signs, kb nurses notes. 22:38 Counseling: I had a detailed discussion with the patient and/or guardian regarding the kb historical points, exam findings, and any diagnostic results supporting the discharge/admit diagnosis, radiology results, the need for outpatient follow up, a family practitioner, to return to the emergency department if symptoms worsen or persist or if there are any questions or concerns that arise at home. 11/08 20:21 Order name: UPPER EXTREMITY VENOUS UNILATE; Complete Time: 21:34 EDMS 11/08 22:38 Order name: Henry Wrap; Complete Time: 22:40 kb Administered Medications: 20:08 Drug: HYDROcodone-acetaminophen PO 5 mg-325 mg 1 tabs PO once Route: PO; rg5 21:14 Follow up: Response: No adverse reaction rg5 Disposition: 11/09 04:37 Co-signature as Attending Physician, Tucker Sierra DO I reviewed the patient's care tt7 provided by the Advanced Practice Provider and agree with the diagnosis and treatment plan. Disposition Summary: 11/08/24 22:39 Discharge Ordered Notes: Location: Home kb Condition: Stable kb Diagnosis - Pain in right wrist kb Followup: kb - With: Emergency Department - When: As needed - Reason: Worsening of condition Followup: kb - With: Private Physician - When: 2 - 3 days - Reason: Recheck today's complaints, Continuance of care, Re-evaluation by your physician Discharge Instructions: - Discharge Summary Sheet kb - Ganglion Cyst kb - Wrist Pain, Adult, [id number] kb Forms: - Medication Reconciliation Form kb - Antibiotic Education kb - Prescription Opioid Use kb - Patient Portal Instructions kb - Leadership Thank You Letter kb Prescriptions: - Prednisone 20 mg Oral Tablet - take 1 tablet ORAL route once daily for 5 days; 5 tablet; Refills: 0, Product kb Selection Permitted - Diclofenac Sodium 75 mg Oral tablet, delayed release (enteric coated) - take 1 tablet ORAL route 2 times per day As needed; 30 tablet; Refills: 0, kb Product Selection Permitted Signatures: Dispatcher [employer] EDMS Tona Diaz, FLOR[place]-[employer]-Derick Aviles, RN RN rg5 CAROL ROCKWELL RN RN dd2 Tucker Sierra, DO ADLER tt7 Corrections: (The following items were deleted from the chart) 11/08 20:21 19:26 Extremity Venous Uni [id number] ordered. EDMS EDMS
--- NOTE | 2024-11-08 22:40 | ER ---
Nurse's Notes [facility] Name: Maribell Karimi Age: 39 yrs Sex: Female : 1985 Arrival Date: 11/08/2024 Time: 19:09 Bed 10 Private MD: Diagnosis: Pain in right wrist Presentation: 11/08 19:23 Chief complaint: Patient states: KNOT IN RT WRIST THAT BEGAN HURTING AND SENDING PAIN dd2 UP HER RIGHT ARM INTO SHOULDER. PT REPORTS BEGAN AN HOUR AGO. Coronavirus screen: At this time, the client does not indicate any symptoms associated with coronavirus-19. Ebola Screen: No symptoms or risks identified at this time. Risk Assessment: Do you want to hurt yourself or someone else? Patient reports no desire to harm self or others. Onset of symptoms was November 08, 2024 at 18:30. 19:23 Method Of Arrival: Ambulatory dd2 19:23 Acuity: CHUCKIE 4 dd2 19:25 Initial Sepsis Screen: Does the patient meet any 2 criteria? No. Patient's initial dd2 sepsis screen is negative. Does the patient have a suspected source of infection? No. Patient's initial sepsis screen is negative. Triage Assessment: 19:25 General: Appears in no apparent distress. uncomfortable, Behavior is calm, cooperative, dd2 appropriate for age. Pain: Complains of pain in lateral aspect of right wrist Pain radiates to right arm. Historical: - Allergies: 19:25 No Known Allergies; dd2 - PMHx: 19:25 Has had a blood transfusion before; Hypertension; dd2 - PSHx: 19:25 None; dd2 - Immunization history:: Adult Immunizations unknown. - Infectious Disease History:: Denies. - Social history:: Smoking status: Patient denies any tobacco usage or history of. Screenin:11 [facility] ED Fall Risk Assessment (Adult) History of falling in the last 3 months, rg5 including since admission No falls in past 3 months (0 pts) Confusion or Disorientation No (0 pts) Intoxicated or Sedated No (0 pts) Impaired Gait No (0 pts) Mobility Assist Device Used No (0 pt) Altered Elimination No (0 pt) Score/Fall Risk Level 0 - 2 = Low Risk Oriented to surroundings, Maintained a safe environment. Abuse screen: Denies threats or abuse. Denies injuries from another. Nutritional screening: No deficits noted. Tuberculosis screening: No symptoms or risk factors identified. Assessment: 20:11 General: Appears in no apparent distress. Behavior is calm, cooperative, appropriate rg5 for age. Pain: Complains of pain in right arm Quality of pain is described as dull. Neuro: Level of Consciousness is awake, alert, obeys commands, Oriented to person, place, time, situation. Cardiovascular: Denies chest pain, Patient's skin is warm and dry. Respiratory: Airway is patent Respiratory effort is even, unlabored. GI: Abdomen is round non-distended. : No signs and/or symptoms were reported regarding the genitourinary system. EENT: No signs and/or symptoms were reported regarding the EENT system. Derm: Skin is intact, Skin is dry, Skin is normal, Skin temperature is warm. Musculoskeletal: Circulation, motion, and sensation intact. Range of motion: intact in all extremities. 21:09 Reassessment: No changes from previously documented assessment. Patient and/or family rg5 updated on plan of care and expected duration. Pain level reassessed. Patient is alert, oriented x 3, equal unlabored respirations, skin warm/dry/pink. Vital Signs: 19:25 BP 105 / 73; Pulse 73; Resp 16; Temp 97.8; Pulse Ox 100% on R/A; Weight 62.6 kg; Height dd2 5 ft. 1 in. ; Pain 7/10; 21:14 BP 101 / 55; Pulse 66; Resp 18; Pulse Ox 99% ; Pain 6/10; rg5 22:35 BP 115 / 60; Pulse 68; Resp 18; Pulse Ox 100% ; rg5 19:25 Body Mass Index 26.07 (62.60 kg, 154.94 cm) dd2 19:25 Pain Scale: Adult dd2 21:14 Pain Scale: Adult rg5 ED Course: 19:12 Patient arrived in ED. sj2 19:13 Tona Diaz FNP-C is PHCP. kb 19:13 Tucker Sierra DO is Attending Physician. kb 19:25 Triage completed. dd2 19:25 Arm band placed on left wrist. dd2 19:57 Derick Verduzco, WENDY is Primary Nurse. rg5 20:11 Patient has correct armband on for positive identification. Bed in low position. Call rg5 light in reach. Side rails up X 1. Door closed. Noise minimized. 20:11 No provider procedures requiring assistance completed. rg5 20:21 UPPER EXTREMITY VENOUS UNILATE In Process Unspecified. EDMS 22:55 Provided Education on: post er care. rg5 22:55 Patient did not have IV access during this emergency room visit. rg5 Administered Medications: 20:08 Drug: HYDROcodone-acetaminophen PO 5 mg-325 mg 1 tabs PO once Route: PO; rg5 21:14 Follow up: Response: No adverse reaction rg5 Medication: 20:11 VIS not applicable for this client. rg5 Outcome: 22:39 Discharge ordered by . raj 22:54 Discharged to home ambulatory, rg5 22:54 Condition: stable 22:54 Discharge instructions given to patient, Instructed on discharge instructions, Demonstrated understanding of instructions, Prescriptions given X 2, 22:55 Patient left the ED. rg5 Signatures: Dispatcher [employer] EDCO Tona Diaz, DAMIAN SANCHEZP-Derick Aviles RN RN rg5 CAROL ROCKWELL RN RN dd2 Dane Wood 2
[2024-11-08 23:14] VITALS: TEMP 97.8
[2024-11-08 23:17] VITALS: BP 115/60; O2SAT 100
== END 2024-11-08 22:55 | disposition home or self-care (01) ==
LOC: ER 19:09
DX: M25.531 Pain in right wrist (principal); I10 Essential (primary) hypertension
CPT/HCPCS: 93971; 99283